=== PATIENT | female | born 1985 | race Caucasian/White ===

== ENCOUNTER → 2020-02-24 | Outpatient (CLI) | payer OTHER | LOC: RAD 09:12 | PROVIDERS: ATTEND Surgery | DX: C50.912 Malignant neoplasm of unspecified site of left female breast (principal) | CPT/HCPCS: 77049 ==

== ENCOUNTER → 2020-05-10 | Outpatient (CLI) | payer OTHER ==
--- NOTE | 2020-05-10 14:54 | RADIOLOGY REPORT (SQ) ---
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 RADIONUCLIDE AND DOSE: 26.8 mCi technetium 99m labeled red blood cells The route of agent administration: Intravenous TECHNIQUE: Following administration of the radionuclide, gated images of the heart are obtained in t hree projections. Left ventricular functional analysis performed. LIMITATIONS: None. FINDINGS: LEFT VENTRICULAR FUNCTION: EJECTION FRACTION: 53%. END-DIASTOLIC VOLUME: 99 mL. END-SYSTOLIC VOLUME: 49 mL. WALL MOTION: No focal wall motion abnormalities. OTHER: No other significant finding. IMPRESSION: NORMAL CARDIAC MUGA STUDY. NORMAL LEFT VENTRICULAR FUNCTION WITH VALUES ABOVE. TECHNICAL DOCUMENTATION: JOB ID: [id number] 2010 [employer]- All Rights Reserved Reading location - IP/workstation name: [email or web address]
== END ==
LOC: RAD 12:39
PROVIDERS: ATTEND Internal Medicine
DX: C50.012 Malignant neoplasm of nipple and areola, left female breast (principal); Z13.6 Encounter for screening for cardiovascular disorders; Z51.11 Encounter for antineoplastic chemotherapy
CPT/HCPCS: 78472; A9560; Q9969

== ENCOUNTER 2020-05-19 08:46 | Outpatient (CLI) | payer OTHER ==
[~2020-05-19 08:46] MED LIST: DEXAMETHASONE SOD PHOSPHATE 10 MG in NORMAL SALINE 50 ML IV PRN; DIPHENHYDRAMINE HCL 50 MG in NORMAL SALINE 50 ML IV PRN; FAMOTIDINE/PF 20 MG in NORMAL SALINE 50 ML IV PRN; NORMAL SALINE 250 ML IV PRN; NORMAL SALINE IV PRN; PACLITAXEL SEMI SYNTHETIC IV PRN; TRASTUZUMAB IV PRN
[2020-05-19 09:06] VITALS: BP 110/57
== END 2020-05-19 14:37 | disposition home or self-care (01) ==
LOC: II 08:46 → 5TH 08:48 → II 14:37
PROVIDERS: ATTEND Internal Medicine
DX: Z51.11 Encounter for antineoplastic chemotherapy (principal); C50.012 Malignant neoplasm of nipple and areola, left female breast
CPT/HCPCS: 96413; 96415; 96367; 96417; J1200; J7050; J9267; S0028; J1100; J9355; J1642

== ENCOUNTER 2020-05-26 08:49 | Outpatient (CLI) | payer OTHER ==
[2020-05-26 09:07] VITALS: BP 109/68
== END 2020-05-26 12:29 | disposition home or self-care (01) ==
LOC: II 08:49 → 5TH 09:16 → II 12:29
PROVIDERS: ATTEND Internal Medicine
DX: Z51.11 Encounter for antineoplastic chemotherapy (principal); C50.012 Malignant neoplasm of nipple and areola, left female breast
CPT/HCPCS: 96413; 96367; 96417; J1200; J7050; J9267; S0028; J1100; J9355; J1642; 96365

== ENCOUNTER 2020-06-02 08:45 | Outpatient (CLI) | payer OTHER ==
[~2020-06-02 08:45] MED LIST changes: +DEXAMETHASONE 10 MG in NS 50 ML IV PRN; -DEXAMETHASONE SOD PHOSPHATE 10 MG in NORMAL SALINE 50 ML IV PRN; +DIPHENHYDRAMINE 50 MG in NS 50 ML IV PRN; -DIPHENHYDRAMINE HCL 50 MG in NORMAL SALINE 50 ML IV PRN; +FAMOTIDINE 20 MG in NS 50 ML IV PRN; -FAMOTIDINE/PF 20 MG in NORMAL SALINE 50 ML IV PRN; +NORMAL SALINE 250 ML @ KVO IV PRN; -NORMAL SALINE 250 ML IV PRN
[2020-06-02 09:10] VITALS: BP 122/71
== END 2020-06-02 14:00 | disposition home or self-care (01) ==
LOC: II 08:45 → 5TH 08:47 → II 14:00
PROVIDERS: ATTEND Internal Medicine
DX: Z51.11 Encounter for antineoplastic chemotherapy (principal); C50.012 Malignant neoplasm of nipple and areola, left female breast
CPT/HCPCS: 96413; 96367; 96417; J1200; J7050; J9267; S0028; J1100; J9355; J1642

== ENCOUNTER 2020-06-09 08:58 | Outpatient (CLI) | payer OTHER ==
[2020-06-09 09:56] VITALS: BP 114/74
== END 2020-06-09 12:30 | disposition home or self-care (01) ==
LOC: II 08:58 → 5TH 08:59 → II 12:30
PROVIDERS: ATTEND Internal Medicine
DX: Z51.11 Encounter for antineoplastic chemotherapy (principal); C50.012 Malignant neoplasm of nipple and areola, left female breast
CPT/HCPCS: 96413; 96367; 96417; J1200; J7050; J9267; S0028; J1100; J9355; J1642

== ENCOUNTER 2020-06-16 09:08 | Outpatient (CLI) | payer OTHER ==
[2020-06-16 09:44] VITALS: BP 113/71
== END 2020-06-16 12:30 | disposition home or self-care (01) ==
LOC: II 09:08 → 5TH 09:10 → II 12:30
PROVIDERS: ATTEND Internal Medicine
DX: Z51.11 Encounter for antineoplastic chemotherapy (principal); C50.012 Malignant neoplasm of nipple and areola, left female breast
CPT/HCPCS: 96413; 96367; 96417; J1200; J7050; J9267; S0028; J1100; J9355; J1642

== ENCOUNTER 2020-06-23 08:53 | Outpatient (CLI) | payer OTHER ==
[2020-06-23 09:03] VITALS: BP 112/70
== END 2020-06-23 12:45 | disposition home or self-care (01) ==
LOC: II 08:53 → 5TH 08:54 → II 12:45
PROVIDERS: ATTEND Internal Medicine
DX: Z51.11 Encounter for antineoplastic chemotherapy (principal); C50.012 Malignant neoplasm of nipple and areola, left female breast
CPT/HCPCS: 96413; 96367; 96417; J1200; J7050; J9267; S0028; J1100; J9355; J1642

== ENCOUNTER 2020-06-30 08:58 | Outpatient (CLI) | payer OTHER ==
[2020-06-30 09:56] VITALS: BP 117/75
== END 2020-06-30 13:10 | disposition home or self-care (01) ==
LOC: II 08:58 → 5TH 09:01 → II 13:10
PROVIDERS: ATTEND Internal Medicine
DX: Z51.11 Encounter for antineoplastic chemotherapy (principal); C50.012 Malignant neoplasm of nipple and areola, left female breast
CPT/HCPCS: 96413; 96367; 96417; J1200; J7050; J9267; S0028; J1100; J9355; J1642

== ENCOUNTER 2020-07-07 08:54 | Outpatient (CLI) | payer OTHER ==
[2020-07-07 09:09] VITALS: BP 127/73
== END 2020-07-07 13:16 | disposition home or self-care (01) ==
LOC: II 08:54 → 5TH 08:55 → II 13:16
PROVIDERS: ATTEND Internal Medicine
DX: Z51.11 Encounter for antineoplastic chemotherapy (principal); C50.012 Malignant neoplasm of nipple and areola, left female breast
CPT/HCPCS: 96413; 96367; 96417; J1200; J7050; J9267; S0028; J1100; J9355; J1642

== ENCOUNTER → 2020-07-07 | Outpatient (CLI) | payer OTHER ==
--- NOTE | 2020-07-07 13:38 | RADIOLOGY REPORT (SQ) ---
EXAM DESCRIPTION: RIBS LEFT W/PA CHEST IMAGES COMPLETED DATE/TIME: 07/07/2020 12:59 pm REASON FOR STUDY: RIB PAIN R07.82 INTERCOSTAL PAIN COMPARISON: None. TECHNIQUE: Frontal view of the chest and additional views of the left ribs acquired. NUMBER OF VIEWS: Three view. LIMITATIONS: None. FINDINGS: FRONTAL CXR: No pneumothorax. No pleural effusion. No atelectasis or infiltrates. RIBS: No displaced rib fractures. No lytic or blastic bony lesions. OTHER: No other significant finding. IMPRESSION: NO PNEUMOTHORAX. NO DISPLACED RIB FRACTURES. COMMENT: SITE OF TRAUMA/COMPLAINT MARKED/STAMP COMPLETED: No TECHNICAL DOCUMENTATION: JOB ID: [id number] 2010 [employer]- All Rights Reserved Reading location - IP/workstation name: [email or web address]
== END ==
LOC: RAD 12:39
PROVIDERS: ATTEND Physician Assistant Medical
DX: R07.81 Pleurodynia (principal)

== ENCOUNTER 2020-07-14 08:50 | Outpatient (CLI) | payer OTHER ==
[2020-07-14 09:22] VITALS: BP 109/70
== END 2020-07-14 13:00 | disposition home or self-care (01) ==
LOC: II 08:50 → 5TH 09:02 → II 13:00
PROVIDERS: ATTEND Internal Medicine
DX: Z51.11 Encounter for antineoplastic chemotherapy (principal); C50.012 Malignant neoplasm of nipple and areola, left female breast
CPT/HCPCS: 96413; 96367; 96417; J1200; J7050; J9267; S0028; J1100; J9355; J1642

== ENCOUNTER 2020-07-21 08:59 | Outpatient (CLI) | payer OTHER ==
[2020-07-21 09:24] VITALS: BP 108/69
--- OUTSIDE RECORDS SUMMARY | 2020-07-22 15:12 | XMS REPORT ---
:1985 [facility] [address] [place] [address] Care Team Providers Name Role Phone Junito Talamantes Attending Clinician Unavailable EDNA Attending Clinician Unavailable Chai Attending Clinician Unavailable Osiris Attending Clinician Unavailable Allergies, Adverse Reactions, Alerts This patient has no known allergies or adverse reactions. Medications Ordered Filled Start Stop Current Ordering Indication Dosage Frequency Signature Comments Components Medication Medication Date Date Medication? Clinician (SIG) Name Name Clotrimazol 2020-1 Yes e 0- 00:00: 00 Medrol 2020-1 Yes 0 00:00: 00 Ativan 2020-0 Yes 1 06-08 00:00: 00 Clindamycin 2020-0 Yes 1 Phos-Benzoy 9-30 l Perox 00:00: 00 Heparin 2020-0 2020- Yes 5mL Sodium Lock 06-02 Flush 00:00: 00:00 00 :00 Trastuzumab 2020-0 No 143mg 9-10 00:00: 00 Cimetidine 2020-0 Yes HCl 9- 00:00: 00 Dexamethaso 2020-0 Yes 10mg ne Sodium 9-10 Phosphate 00:00: 00 DiphenhydrA 2020-0 Yes 50mg MINE HCl 9- 00:00: 00 Paclitaxel 2020-0 Yes 141mg 9-10 00:00: 00 Sodium 2020-0 No Chloride 9-10 00:00: 00 Sodium 2020-0 Yes 250mL Chloride 9-10 00:00: 00 Famotidine 2020-0 2020- Yes 20mg 9-10 07-01 00:00: 00:00 00 :00 Trastuzumab 2020-0 2020- Yes 142mg -07-01 00:00: 00:00 00 :00 Promethazin 2020-0 Yes 1 e HCl 05-18 00:00: 00 Zofran ODT 2020-0 Yes 1 05-18 00:00: 00 Oxycodone/A 2019- Yes 1 Every 4 cetaminophe 7-17 Hours as n (Percocet 13:27: needed for 5/325 Mg*) 00 Mild Pain 5 Mg/325 Mg No driving TAB or heavy lifting. May cause drowsiness . Docusate 2020-0 Yes 100 Twice Per Sodium 7-17 Day (Colace*) 13:26: 100 Mg CAP 00 Bactrim DS No 1 Q12H Bactrim DS 800 mg-160 800 mg-160 mg tablet mg tablet Take 1 Take 1 tablet tablet every 12 every 12 hours by hours by oral route oral route for 7 days. for 7 days. Flonase Yes 1 ZyrTEC Yes 1 Allergy Cetirizine Yes 10 Once Per Hcl (Zyrtec Day as Tab*) 10 Mg needed for TAB Allergies Fluticasone Yes 2 Once Per Propionate Day as (Flonase needed for 0.05% Nasal Allergies [place]*) 120 SHAKE WELL [place]/16 Gm INHA Problems Condition Condition Condition Status Onset Resolution Last Treatin g Comments Name Details Category Date Date Treatment Clinician Date Rib pain Rib pain Diagnosis active 2019-09 0- 00:00: 00 Eruption Eruption Diagnosis active 2019-09 0- 00:00: 00 Nausea Nausea Diagnosis active 9 00:00: 00 Postoperati Postoperati Problem Active ve wound ve Wound 8-03 abscess Abscess 00:00: 00 History of History of Problem Active malignant Malignant 04-05 neoplasm of Neoplasm of 00:00: breast Breast 00 Malignant Malignant Problem Inactiv neoplasm of Neoplasm of e 7 female Female 00:00: breast Breast 00 Anal Anal Problem Active fissure Fissure 6-02 00:00: 00 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 00:00: 00 Primary Primary Problem 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 Malignant Malignant Diagnosis active tumor of tumor of breast breast Procedures Procedure Date / Time Performed Performing Clinician Deanna trujillo mastectomy, with sentinel lymph 2020-04-04 00:00:00 node biopsy (SURG) Mastectomy, with [place] Lymph 2020-03-25 00:00:00 Node Biopsy (Surg) MRI, breast, bilateral, w/wo 2020-02-16 00:00:00 contrast MAMMO, diagnostic, digital, 2020-02-09 00:00:00 unilateral OFFICE/OUTPATIENT VISIT EST 2019-01-09 10:15:00 OFFICE/OUTPATIENT VISIT EST 2018-10-15 10:00:00 DELIVERY ONLY 2013-01-06 00:00:00 section 2013-01-06 00:00:00 DELIVERY ONLY 2012-09-09 00:00:00 Excision of Pilonidal Abscess 2005-09-09 00:00:00 Pilonidal Cyst breast biopsy Results Test Description Test Time Test Comments Text Results Atomic Results Result Comments WBC 2020-07-13 15:21:00 Test Item Value Reference Range Comments WBC (test code = WBC) 4.9000 4.0000-10.0000 Lymphocytes % (test code = Lymphocytes %) 27.7000 % 22.400 0-43.6000 MID% (test code = MID%) 6.2000 % 1.2000-11.2000 Neutrophils % (test code = Neutrophils %) 66.1000 % 48.900 0-69.9000 Lymphocytes (test code = Lymphocytes) 1.3000 1.2000-3.2 000 MID (test code = MID) 0.4000 0.1000-1.1000 Neutrophils (test code = Neutrophils) 3.2000 1.5000-6.7 000 RBC (test code = RBC) 3.6500 3.7000-4.9000 HGB (test code = HGB) 11.5000 g/dL 11.2000-18.0000 HCT (test code = HCT) 32.7000 % 34.0000-44.0000 MCV (test code = MCV) 89.6000 fL 80.0000-94.0000 MCH (test code = MCH) 31.5000 pg 27.0000-34.0000 MCHC (test code = MCHC) 35.2000 g/dL 31.5000-36.0000 RDW (test code = RDW) 15.9000 11.0000-18.0000 PLT (test code = PLT) 370.0000 140.0000-440.0000 MPV (test code = MPV) 7.6000 fL 6.8000-10.6000 [id number] 15:21:00 Test Item Value Reference Range Comments Creatinine (test code = Creatinine) 0.6000 mg/dL 0.5000-1.200 0 Cr Clearance (Est) (test code = Cr 143.7700 75.0000-115.0 000 Clearance (Est)) Glucose (test code = Glucose) 108.0000 mg/dL 70.0000-118.0000 BUN (test code = BUN) 14.0000 mg/dL 7.0000-22.0000 Sodium (test code = Sodium) 137.0000 mmol/L 128.0000-145.0000 Potassium (test code = Potassium) 3.7000 mmol/L 3.6000-5.1000 Chloride (test code = Chloride) 103.0000 mmol/L 96.0000-108.0000 CO2 (test code = CO2) 28.0000 mmol/L 18.0000-33.0000 Calcium (test code = Calcium) 9.0900 mg/dL 8.0000-10.3000 Alkaline Phosphatase (test code = Alkaline 94.0000 42.00 00-141.0000 Phosphatase) ALT (SGPT) (test code = ALT (SGPT)) 33.0000 10.0000-47.0 000 AST (SGOT) (test code = AST (SGOT)) 21.0000 11.0000-37.0 000 Bilirubin, Total (test code = Bilirubin, 0.8000 mg/dL 0.0000- 1.6000 Total) Albumin (test code = Albumin) 4.6000 g/dL 3.5000-5.5000 Protein, Total (test code = Protein, 6.2000 g/dL 6.4000-8.10 00 Total) eGFR -Angolan (test code = eGFR 137.0000 60.0000- 200.0000 -Angolan) eGFR Caa-Rzhzwtv-Lbehiujq (test code = 113.0000 60.0000-2 00.0000 eGFR Wxg-Kutawmo-Pbhknkuc) [id number] 14:54:00 Test Item Value Reference Range Comments WBC (test code = WBC) 5.8000 4.0000-10.0000 Lymphocytes % (test code = Lymphocytes %) 24.3000 % 22.400 0-43.6000 MID% (test code = MID%) 5.7000 % 1.2000-11.2000 Neutrophils % (test code = Neutrophils %) 70.0000 % 48.900 0-69.9000 Lymphocytes (test code = Lymphocytes) 1.4000 1.2000-3.2 000 MID (test code = MID) 0.4000 0.1000-1.1000 Neutrophils (test code = Neutrophils) 4.0000 1.5000-6.7 000 RBC (test code = RBC) 3.6600 3.7000-4.9000 HGB (test code = HGB) 11.6000 g/dL 11.2000-18.0000 HCT (test code = HCT) 32.2000 % 34.0000-44.0000 MCV (test code = MCV) 87.9000 fL 80.0000-94.0000 MCH (test code = MCH) 31.8000 pg 27.0000-34.0000 MCHC (test code = MCHC) 36.2000 g/dL 31.5000-36.0000 RDW (test code = RDW) 15.5000 11.0000-18.0000 PLT (test code = PLT) 365.0000 140.0000-440.0000 MPV (test code = MPV) 7.5000 fL 6.8000-10.6000 [id number] 14:54:00 Test Item Value Reference Range Comments RBC (test code = RBC) 3.6600 3.7000-4.9000 WBC (test code = WBC) 5.8000 4.0000-10.0000 PLT (test code = PLT) 365.0000 140.0000-440.0000 MID (test code = MID) 0.4000 0.1000-1.1000 Neutrophils (test code = Neutrophils) 4.0000 1.5000-6.7 000 MCHC (test code = MCHC) 36.2000 g/dL 31.5000-36.0000 HGB (test code = HGB) 11.6000 g/dL 11.2000-18.0000 Lymphocytes (test code = Lymphocytes) 1.4000 1.2000-3.2 000 MPV (test code = MPV) 7.5000 fL 6.8000-10.6000 MCV (test code = MCV) 87.9000 fL 80.0000-94.0000 MCH (test code = MCH) 31.8000 pg 27.0000-34.0000 Neutrophils % (test code = Neutrophils %) 70.0000 % 48.900 0-69.9000 HCT (test code = HCT) 32.2000 % 34.0000-44.0000 Lymphocytes % (test code = Lymphocytes %) 24.3000 % 22.400 0-43.6000 MID% (test code = MID%) 5.7000 % 1.2000-11.2000 RDW (test code = RDW) 15.5000 11.0000-18.0000 Protein, [id number] 14:54:00 Test Item Value Reference Range Comments Protein, Total (test code = Protein, 6.7000 g/dL 6.4000-8.10 00 Total) Albumin (test code = Albumin) 4.7000 g/dL 3.5000-5.5000 Glucose (test code = Glucose) 93.0000 mg/dL 70.0000-118.0000 Calcium (test code = Calcium) 9.8500 mg/dL 8.0000-10.3000 Bilirubin, Total (test code = Bilirubin, 0.8000 mg/dL 0.0000- 1.6000 Total) BUN (test code = BUN) 13.0000 mg/dL 7.0000-22.0000 Creatinine (test code = Creatinine) 0.5000 mg/dL 0.5000-1.200 0 eGFR Iuq-Lfivist-Wvdgpqyq (test code = 139.0000 60.0000-2 00.0000 eGFR Odg-Zreppsv-Bjdoeocq) Cr Clearance (Est) (test code = Cr 171.4300 75.0000-115.0 000 Clearance (Est)) Potassium (test code = Potassium) 3.8000 mmol/L 3.6000-5.1000 eGFR -Angolan (test code = eGFR 168.0000 60.0000- 200.0000 -Angolan) Sodium (test code = Sodium) 136.0000 mmol/L 128.0000-145.0000 Alkaline Phosphatase (test code = Alkaline 96.0000 42.00 00-141.0000 Phosphatase) ALT (SGPT) (test code = ALT (SGPT)) 49.0000 10.0000-47.0 000 AST (SGOT) (test code = AST (SGOT)) 29.0000 11.0000-37.0 000 CO2 (test code = CO2) 27.0000 mmol/L 18.0000-33.0000 Chloride (test code = Chloride) 103.0000 mmol/L 96.0000-108.0000 [id number] 14:54:00 Test Item Value Reference Range Comments Creatinine (test code = Creatinine) 0.5000 mg/dL 0.5000-1.200 0 Cr Clearance (Est) (test code = Cr 171.4300 75.0000-115.0 000 Clearance (Est)) Glucose (test code = Glucose) 93.0000 mg/dL 70.0000-118.0000 BUN (test code = BUN) 13.0000 mg/dL 7.0000-22.0000 Sodium (test code = Sodium) 136.0000 mmol/L 128.0000-145.0000 Potassium (test code = Potassium) 3.8000 mmol/L 3.6000-5.1000 Chloride (test code = Chloride) 103.0000 mmol/L 96.0000-108.0000 CO2 (test code = CO2) 27.0000 mmol/L 18.0000-33.0000 Calcium (test code = Calcium) 9.8500 mg/dL 8.0000-10.3000 Alkaline Phosphatase (test code = Alkaline 96.0000 42.00 00-141.0000 Phosphatase) ALT (SGPT) (test code = ALT (SGPT)) 49.0000 10.0000-47.0 000 AST (SGOT) (test code = AST (SGOT)) 29.0000 11.0000-37.0 000 Bilirubin, Total (test code = Bilirubin, 0.8000 mg/dL 0.0000- 1.6000 Total) Albumin (test code = Albumin) 4.7000 g/dL 3.5000-5.5000 Protein, Total (test code = Protein, 6.7000 g/dL 6.4000-8.10 00 Total) eGFR -Angolan (test code = eGFR 168.0000 60.0000- 200.0000 -Angolan) eGFR Par-Zjyyqhz-Rjmndzav (test code = 139.0000 60.0000-2 00.0000 eGFR Lzi-Iuifzrm-Oroxrslz) [id number] 08:28:00 Test Item Value Reference Range Comments WBC (test code = WBC) 5.0000 4.0000-10.0000 Lymphocytes % (test code = Lymphocytes %) 23.2000 % 22.400 0-43.6000 MID% (test code = MID%) 5.7000 % 1.2000-11.2000 Neutrophils % (test code = Neutrophils %) 71.1000 % 48.900 0-69.9000 Lymphocytes (test code = Lymphocytes) 1.1000 1.2000-3.2 000 MID (test code = MID) 0.4000 0.1000-1.1000 Neutrophils (test code = Neutrophils) 3.5000 1.5000-6.7 000 RBC (test code = RBC) 3.7800 3.7000-4.9000 HGB (test code = HGB) 12.0000 g/dL 11.2000-18.0000 HCT (test code = HCT) 33.8000 % 34.0000-44.0000 MCV (test code = MCV) 89.4000 fL 80.0000-94.0000 MCH (test code = MCH) 31.9000 pg 27.0000-34.0000 MCHC (test code = MCHC) 35.7000 g/dL 31.5000-36.0000 RDW (test code = RDW) 15.8000 11.0000-18.0000 PLT (test code = PLT) 351.0000 140.0000-440.0000 MPV (test code = MPV) 7.3000 fL 6.8000-10.6000 [id number] 08:28:00 Test Item Value Reference Range Comments Creatinine (test code = Creatinine) 0.5000 mg/dL 0.5000-1.200 0 Cr Clearance (Est) (test code = Cr 173.4100 75.0000-115.0 000 Clearance (Est)) Glucose (test code = Glucose) 103.0000 mg/dL 70.0000-118.0000 BUN (test code = BUN) 12.0000 mg/dL 7.0000-22.0000 Sodium (test code = Sodium) 140.0000 mmol/L 128.0000-145.0000 Potassium (test code = Potassium) 3.8000 mmol/L 3.6000-5.1000 Chloride (test code = Chloride) 107.0000 mmol/L 96.0000-108.0000 CO2 (test code = CO2) 25.0000 mmol/L 18.0000-33.0000 Calcium (test code = Calcium) 9.3800 mg/dL 8.0000-10.3000 Alkaline Phosphatase (test code = Alkaline 80.0000 42.00 00-141.0000 Phosphatase) ALT (SGPT) (test code = ALT (SGPT)) 32.0000 10.0000-47.0 000 AST (SGOT) (test code = AST (SGOT)) 18.0000 11.0000-37.0 000 Bilirubin, Total (test code = Bilirubin, 0.6000 mg/dL 0.0000- 1.6000 Total) Albumin (test code = Albumin) 4.6000 g/dL 3.5000-5.5000 Protein, Total (test code = Protein, 6.4000 g/dL 6.4000-8.10 00 Total) eGFR -Angolan (test code = eGFR 168.0000 60.0000- 200.0000 -Angolan) eGFR Kst-Oxhfopw-Paorgooq (test code = 139.0000 60.0000-2 00.0000 eGFR Lkx-Mdoqgdy-Ubbxnykn) AST (SGOT)2020-06-30 08:28:00 Test Item Value Reference Range Comments AST (SGOT) (test code = AST (SGOT)) 18.0000 11.0000-37.0 000 CO2 (test code = CO2) 25.0000 mmol/L 18.0000-33.0000 ALT (SGPT) (test code = ALT (SGPT)) 32.0000 10.0000-47.0 000 Alkaline Phosphatase (test code = Alkaline 80.0000 42.00 00-141.0000 Phosphatase) Sodium (test code = Sodium) 140.0000 mmol/L 128.0000-145.0000 Potassium (test code = Potassium) 3.8000 mmol/L 3.6000-5.1000 Chloride (test code = Chloride) 107.0000 mmol/L 96.0000-108.0000 eGFR -Angolan (test code = eGFR 168.0000 60.0000- 200.0000 -Angolan) eGFR Baa-Spxflhy-Urqudikq (test code = 139.0000 60.0000-2 00.0000 eGFR Rmk-Dgmzwmy-Bnnyzhry) Cr Clearance (Est) (test code = Cr 173.4100 75.0000-115.0 000 Clearance (Est)) Creatinine (test code = Creatinine) 0.5000 mg/dL 0.5000-1.200 0 Bilirubin, Total (test code = Bilirubin, 0.6000 mg/dL 0.0000- 1.6000 Total) BUN (test code = BUN) 12.0000 mg/dL 7.0000-22.0000 Calcium (test code = Calcium) 9.3800 mg/dL 8.0000-10.3000 Protein, Total (test code = Protein, 6.4000 g/dL 6.4000-8.10 00 Total) Glucose (test code = Glucose) 103.0000 mg/dL 70.0000-118.0000 Albumin (test code = Albumin) 4.6000 g/dL 3.5000-5.5000 [id number] 08:28:00 Test Item Value Reference Range Comments RDW (test code = RDW) 15.8000 11.0000-18.0000 MID% (test code = MID%) 5.7000 % 1.2000-11.2000 Lymphocytes % (test code = Lymphocytes %) 23.2000 % 22.400 0-43.6000 Neutrophils % (test code = Neutrophils %) 71.1000 % 48.900 0-69.9000 HCT (test code = HCT) 33.8000 % 34.0000-44.0000 MCH (test code = MCH) 31.9000 pg 27.0000-34.0000 MCV (test code = MCV) 89.4000 fL 80.0000-94.0000 MPV (test code = MPV) 7.3000 fL 6.8000-10.6000 HGB (test code = HGB) 12.0000 g/dL 11.2000-18.0000 MCHC (test code = MCHC) 35.7000 g/dL 31.5000-36.0000 Lymphocytes (test code = Lymphocytes) 1.1000 1.2000-3.2 000 MID (test code = MID) 0.4000 0.1000-1.1000 Neutrophils (test code = Neutrophils) 3.5000 1.5000-6.7 000 PLT (test code = PLT) 351.0000 140.0000-440.0000 WBC (test code = WBC) 5.0000 4.0000-10.0000 RBC (test code = RBC) 3.7800 3.7000-4.9000 [id number] 14:46:00 Test Item Value Reference Range Comments WBC (test code = WBC) 5.9000 4.0000-10.0000 Lymphocytes % (test code = Lymphocytes %) 25.7000 % 22.400 0-43.6000 MID% (test code = MID%) 5.7000 % 1.2000-11.2000 Neutrophils % (test code = Neutrophils %) 68.6000 % 48.900 0-69.9000 Lymphocytes (test code = Lymphocytes) 1.5000 1.2000-3.2 000 MID (test code = MID) 0.4000 0.1000-1.1000 Neutrophils (test code = Neutrophils) 4.0000 1.5000-6.7 000 RBC (test code = RBC) 3.9400 3.7000-4.9000 HGB (test code = HGB) 12.3000 g/dL 11.2000-18.0000 HCT (test code = HCT) 35.2000 % 34.0000-44.0000 MCV (test code = MCV) 89.2000 fL 80.0000-94.0000 MCH (test code = MCH) 31.2000 pg 27.0000-34.0000 MCHC (test code = MCHC) 35.0000 g/dL 31.5000-36.0000 RDW (test code = RDW) 15.5000 11.0000-18.0000 PLT (test code = PLT) 385.0000 140.0000-440.0000 MPV (test code = MPV) 7.4000 fL 6.8000-10.6000 [id number] 14:46:00 Test Item Value Reference Range Comments Creatinine (test code = Creatinine) 0.7000 mg/dL 0.5000-1.200 0 Cr Clearance (Est) (test code = Cr 122.4500 75.0000-115.0 000 Clearance (Est)) Glucose (test code = Glucose) 96.0000 mg/dL 70.0000-118.0000 BUN (test code = BUN) 14.0000 mg/dL 7.0000-22.0000 Sodium (test code = Sodium) 137.0000 mmol/L 128.0000-145.0000 Potassium (test code = Potassium) 3.7000 mmol/L 3.6000-5.1000 Chloride (test code = Chloride) 102.0000 mmol/L 96.0000-108.0000 CO2 (test code = CO2) 28.0000 mmol/L 18.0000-33.0000 Calcium (test code = Calcium) 9.6600 mg/dL 8.0000-10.3000 Alkaline Phosphatase (test code = Alkaline 94.0000 42.00 00-141.0000 Phosphatase) ALT (SGPT) (test code = ALT (SGPT)) 27.0000 10.0000-47.0 000 AST (SGOT) (test code = AST (SGOT)) 19.0000 11.0000-37.0 000 Bilirubin, Total (test code = Bilirubin, 0.7000 mg/dL 0.0000- 1.6000 Total) Albumin (test code = Albumin) 4.7000 g/dL 3.5000-5.5000 Protein, Total (test code = Protein, 6.7000 g/dL 6.4000-8.10 00 Total) eGFR -Angolan (test code = eGFR 115.0000 60.0000- 200.0000 -Angolan) eGFR Vqs-Cbhvxse-Thlplaix (test code = 95.0000 60.0000-2 00.0000 eGFR Iff-Hnnxjrg-Wwryeuef) [id number] 14:46:00 Test Item Value Reference Range Comments RBC (test code = RBC) 3.9400 3.7000-4.9000 PLT (test code = PLT) 385.0000 140.0000-440.0000 WBC (test code = WBC) 5.9000 4.0000-10.0000 Neutrophils (test code = Neutrophils) 4.0000 1.5000-6.7 000 MID (test code = MID) 0.4000 0.1000-1.1000 Lymphocytes (test code = Lymphocytes) 1.5000 1.2000-3.2 000 MCHC (test code = MCHC) 35.0000 g/dL 31.5000-36.0000 HGB (test code = HGB) 12.3000 g/dL 11.2000-18.0000 MPV (test code = MPV) 7.4000 fL 6.8000-10.6000 MCV (test code = MCV) 89.2000 fL 80.0000-94.0000 MCH (test code = MCH) 31.2000 pg 27.0000-34.0000 HCT (test code = HCT) 35.2000 % 34.0000-44.0000 Neutrophils % (test code = Neutrophils %) 68.6000 % 48.900 0-69.9000 Lymphocytes % (test code = Lymphocytes %) 25.7000 % 22.400 0-43.6000 MID% (test code = MID%) 5.7000 % 1.2000-11.2000 RDW (test code = RDW) 15.5000 11.0000-18.0000 [id number] 14:46:00 Test Item Value Reference Range Comments Albumin (test code = Albumin) 4.7000 g/dL 3.5000-5.5000 Protein, Total (test code = Protein, 6.7000 g/dL 6.4000-8.10 00 Total) Calcium (test code = Calcium) 9.6600 mg/dL 8.0000-10.3000 BUN (test code = BUN) 14.0000 mg/dL 7.0000-22.0000 Glucose (test code = Glucose) 96.0000 mg/dL 70.0000-118.0000 Bilirubin, Total (test code = Bilirubin, 0.7000 mg/dL 0.0000- 1.6000 Total) Creatinine (test code = Creatinine) 0.7000 mg/dL 0.5000-1.200 0 Cr Clearance (Est) (test code = Cr 122.4500 75.0000-115.0 000 Clearance (Est)) eGFR -Angolan (test code = eGFR 115.0000 60.0000- 200.0000 -Angolan) eGFR Irl-Jqcretp-Eybckjjf (test code = 95.0000 60.0000-2 00.0000 eGFR Sjl-Dilcukd-Zzkcyqyb) Chloride (test code = Chloride) 102.0000 mmol/L 96.0000-108.0000 Potassium (test code = Potassium) 3.7000 mmol/L 3.6000-5.1000 Sodium (test code = Sodium) 137.0000 mmol/L 128.0000-145.0000 Alkaline Phosphatase (test code = Alkaline 94.0000 42.00 00-141.0000 Phosphatase) ALT (SGPT) (test code = ALT (SGPT)) 27.0000 10.0000-47.0 000 CO2 (test code = CO2) 28.0000 mmol/L 18.0000-33.0000 AST (SGOT) (test code = AST (SGOT)) 19.0000 11.0000-37.0 000 [id number] 08:33:00 Test Item Value Reference Range Comments WBC (test code = WBC) 4.4000 4.0000-10.0000 Lymphocytes % (test code = Lymphocytes %) 28.1000 % 22.400 0-43.6000 MID% (test code = MID%) 6.0000 % 1.2000-11.2000 Neutrophils % (test code = Neutrophils %) 65.9000 % 48.900 0-69.9000 Lymphocytes (test code = Lymphocytes) 1.2000 1.2000-3.2 000 MID (test code = MID) 0.3000 0.1000-1.1000 Neutrophils (test code = Neutrophils) 2.9000 1.5000-6.7 000 RBC (test code = RBC) 3.9700 3.7000-4.9000 HGB (test code = HGB) 12.7000 g/dL 11.2000-18.0000 HCT (test code = HCT) 35.5000 % 34.0000-44.0000 MCV (test code = MCV) 89.4000 fL 80.0000-94.0000 MCH (test code = MCH) 32.0000 pg 27.0000-34.0000 MCHC (test code = MCHC) 35.8000 g/dL 31.5000-36.0000 RDW (test code = RDW) 15.6000 11.0000-18.0000 PLT (test code = PLT) 367.0000 140.0000-440.0000 MPV (test code = MPV) 7.4000 fL 6.8000-10.6000 [id number] 08:33:00 Test Item Value Reference Range Comments RDW (test code = RDW) 15.6000 11.0000-18.0000 Lymphocytes % (test code = Lymphocytes %) 28.1000 % 22.400 0-43.6000 MID% (test code = MID%) 6.0000 % 1.2000-11.1999 Neutrophils % (test code = Neutrophils %) 65.9000 % 48.900 0-69.9000 HCT (test code = HCT) 35.5000 % 34.0000-44.0000 MCH (test code = MCH) 32.0000 pg 27.0000-34.0000 MCV (test code = MCV) 89.4000 fL 80.0000-94.0000 MPV (test code = MPV) 7.4000 fL 6.8000-10.6000 HGB (test code = HGB) 12.7000 g/dL 11.1999-18.0000 MCHC (test code = MCHC) 35.8000 g/dL 31.5000-36.0000 Lymphocytes (test code = Lymphocytes) 1.2000 1.2000-3.2 000 MID (test code = MID) 0.3000 0.1000-1.1000 Neutrophils (test code = Neutrophils) 2.9000 1.5000-6.7 000 WBC (test code = WBC) 4.4000 4.0000-10.0000 PLT (test code = PLT) 367.0000 140.0000-440.0000 RBC (test code = RBC) 3.9700 3.7000-4.9000 [id number] 08:32:00 Test Item Value Reference Range Comments Creatinine (test code = Creatinine) 0.5000 mg/dL 0.5000-1.200 0 Cr Clearance (Est) (test code = Cr 173.4100 75.0000-115.0 000 Clearance (Est)) Glucose (test code = Glucose) 128.0000 mg/dL 70.0000-118.0000 BUN (test code = BUN) 11.0000 mg/dL 7.0000-22.0000 Sodium (test code = Sodium) 138.0000 mmol/L 128.0000-145.0000 Potassium (test code = Potassium) 3.6000 mmol/L 3.6000-5.1000 Chloride (test code = Chloride) 106.0000 mmol/L 96.0000-108.0000 CO2 (test code = CO2) 26.0000 mmol/L 18.0000-33.0000 Calcium (test code = Calcium) 9.1800 mg/dL 8.0000-10.3000 Alkaline Phosphatase (test code = Alkaline 99.0000 42.00 00-141.0000 Phosphatase) ALT (SGPT) (test code = ALT (SGPT)) 36.0000 10.0000-47.0 000 AST (SGOT) (test code = AST (SGOT)) 20.0000 11.0000-37.0 000 Bilirubin, Total (test code = Bilirubin, 0.6000 mg/dL 0.0000- 1.6000 Total) Albumin (test code = Albumin) 4.6000 g/dL 3.5000-5.5000 Protein, Total (test code = Protein, 6.6000 g/dL 6.4000-8.10 00 Total) eGFR -Angolan (test code = eGFR 169.0000 60.0000- 200.0000 -Angolan) eGFR Wvs-Vqxbuvb-Oexpzkuz (test code = 140.0000 60.0000-2 00.0000 eGFR Pdp-Tenmnde-Gbfatqyc) [id number] 14:23:00 Test Item Value Reference Range Comments WBC (test code = WBC) 5.2000 4.0000-10.0000 Lymphocytes % (test code = Lymphocytes %) 25.9000 % 22.400 0-43.6000 MID% (test code = MID%) 5.8000 % 1.2000-11.2000 Neutrophils % (test code = Neutrophils %) 68.3000 % 48.900 0-69.9000 Lymphocytes (test code = Lymphocytes) 1.3000 1.2000-3.2 000 MID (test code = MID) 0.4000 0.1000-1.1000 Neutrophils (test code = Neutrophils) 3.5000 1.5000-6.7 000 RBC (test code = RBC) 3.9000 3.7000-4.9000 HGB (test code = HGB) 12.7000 g/dL 11.2000-18.0000 HCT (test code = HCT) 34.5000 % 34.0000-44.0000 MCV (test code = MCV) 88.6000 fL 80.0000-94.0000 MCH (test code = MCH) 32.5000 pg 27.0000-34.0000 MCHC (test code = MCHC) 36.7000 g/dL 31.5000-36.0000 RDW (test code = RDW) 15.0000 11.0000-18.0000 PLT (test code = PLT) 369.0000 140.0000-440.0000 MPV (test code = MPV) 7.6000 fL 6.8000-10.6000 [id number] 14:23:00 Test Item Value Reference Range Comments Creatinine (test code = Creatinine) 0.6000 mg/dL 0.5000-1.200 0 Cr Clearance (Est) (test code = Cr 144.3300 75.0000-115.0 000 Clearance (Est)) Glucose (test code = Glucose) 149.0000 mg/dL 70.0000-118.0000 BUN (test code = BUN) 14.0000 mg/dL 7.0000-22.0000 Sodium (test code = Sodium) 137.0000 mmol/L 128.0000-145.0000 Potassium (test code = Potassium) 3.7000 mmol/L 3.6000-5.1000 Chloride (test code = Chloride) 104.0000 mmol/L 96.0000-108.0000 CO2 (test code = CO2) 26.0000 mmol/L 18.0000-33.0000 Calcium (test code = Calcium) 9.1400 mg/dL 8.0000-10.3000 Alkaline Phosphatase (test code = Alkaline 100.0000 42.00 00-141.0000 Phosphatase) ALT (SGPT) (test code = ALT (SGPT)) 39.0000 10.0000-47.0 000 AST (SGOT) (test code = AST (SGOT)) 20.0000 11.0000-37.0 000 Bilirubin, Total (test code = Bilirubin, 0.7000 mg/dL 0.0000- 1.6000 Total) Albumin (test code = Albumin) 4.6000 g/dL 3.5000-5.5000 Protein, Total (test code = Protein, 7.0000 g/dL 6.4000-8.10 00 Total) eGFR -Angolan (test code = eGFR 136.0000 60.0000- 200.0000 -Angolan) eGFR Mqd-Hxbxqaa-Gqoyabkz (test code = 112.0000 60.0000-2 00.0000 eGFR Gbm-Tzhibvz-Fuaebvky) [id number] 14:23:00 Test Item Value Reference Range Comments HCT (test code = HCT) 34.5000 % 34.0000-44.0000 Neutrophils % (test code = Neutrophils %) 68.3000 % 48.900 0-69.9000 MID% (test code = MID%) 5.8000 % 1.2000-11.2000 Lymphocytes % (test code = Lymphocytes %) 25.9000 % 22.400 0-43.6000 RDW (test code = RDW) 15.0000 11.0000-18.0000 MPV (test code = MPV) 7.6000 fL 6.8000-10.6000 MCH (test code = MCH) 32.5000 pg 27.0000-34.0000 MCV (test code = MCV) 88.6000 fL 80.0000-94.0000 HGB (test code = HGB) 12.7000 g/dL 11.2000-18.0000 MCHC (test code = MCHC) 36.7000 g/dL 31.5000-36.0000 RBC (test code = RBC) 3.9000 3.7000-4.9000 PLT (test code = PLT) 369.0000 140.0000-440.0000 WBC (test code = WBC) 5.2000 4.0000-10.0000 Neutrophils (test code = Neutrophils) 3.5000 1.5000-6.7 000 Lymphocytes (test code = Lymphocytes) 1.3000 1.2000-3.2 000 MID (test code = MID) 0.4000 0.1000-1.1000 Alkaline [id number] 14:23:00 Test Item Value Reference Range Comments Alkaline Phosphatase (test code = Alkaline 100.0000 42.00 00-141.0000 Phosphatase) ALT (SGPT) (test code = ALT (SGPT)) 39.0000 10.0000-47.0 000 CO2 (test code = CO2) 26.0000 mmol/L 18.0000-33.0000 AST (SGOT) (test code = AST (SGOT)) 20.0000 11.0000-37.0 000 Cr Clearance (Est) (test code = Cr 144.3300 75.0000-115.0 000 Clearance (Est)) eGFR -Angolan (test code = eGFR 136.0000 60.0000- 200.0000 -Angolan) eGFR Nud-Kujoeyr-Eoagmzqe (test code = 112.0000 60.0000-2 00.0000 eGFR Bth-Gpuwfhu-Soyzvdbe) Chloride (test code = Chloride) 104.0000 mmol/L 96.0000-108.0000 Potassium (test code = Potassium) 3.7000 mmol/L 3.6000-5.1000 Sodium (test code = Sodium) 137.0000 mmol/L 128.0000-145.0000 Protein, Total (test code = Protein, 7.0000 g/dL 6.4000-8.10 00 Total) Albumin (test code = Albumin) 4.6000 g/dL 3.5000-5.5000 Calcium (test code = Calcium) 9.1400 mg/dL 8.0000-10.3000 Glucose (test code = Glucose) 149.0000 mg/dL 70.0000-118.0000 Bilirubin, Total (test code = Bilirubin, 0.7000 mg/dL 0.0000- 1.6000 Total) Creatinine (test code = Creatinine) 0.6000 mg/dL 0.5000-1.200 0 BUN (test code = BUN) 14.0000 mg/dL 7.0000-22.0000 [id number] 08:22:00 Test Item Value Reference Range Comments WBC (test code = WBC) 4.7000 4.0000-10.0000 Lymphocytes % (test code = Lymphocytes %) 27.6000 % 22.400 0-43.6000 MID% (test code = MID%) 5.7000 % 1.2000-11.2000 Neutrophils % (test code = Neutrophils %) 66.7000 % 48.900 0-69.9000 Lymphocytes (test code = Lymphocytes) 1.3000 1.2000-3.2 000 MID (test code = MID) 0.3000 0.1000-1.1000 Neutrophils (test code = Neutrophils) 3.1000 1.5000-6.7 000 RBC (test code = RBC) 4.2800 3.7000-4.9000 HGB (test code = HGB) 13.0000 g/dL 11.2000-18.0000 HCT (test code = HCT) 38.7000 % 34.0000-44.0000 MCV (test code = MCV) 90.2000 fL 80.0000-94.0000 MCH (test code = MCH) 30.4000 pg 27.0000-34.0000 MCHC (test code = MCHC) 33.7000 g/dL 31.5000-36.0000 RDW (test code = RDW) 15.2000 11.0000-18.0000 PLT (test code = PLT) 368.0000 140.0000-440.0000 MPV (test code = MPV) 7.7000 fL 6.8000-10.6000 [id number] 08:22:00 Test Item Value Reference Range Comments Creatinine (test code = Creatinine) 0.7000 mg/dL 0.5000-1.200 0 Cr Clearance (Est) (test code = Cr 123.3900 75.0000-115.0 000 Clearance (Est)) Glucose (test code = Glucose) 111.0000 mg/dL 70.0000-118.0000 BUN (test code = BUN) 13.0000 mg/dL 7.0000-22.0000 Sodium (test code = Sodium) 137.0000 mmol/L 128.0000-145.0000 Potassium (test code = Potassium) 3.7000 mmol/L 3.6000-5.1000 Chloride (test code = Chloride) 103.0000 mmol/L 96.0000-108.0000 CO2 (test code = CO2) 26.0000 mmol/L 18.0000-33.0000 Calcium (test code = Calcium) 9.1000 mg/dL 8.0000-10.3000 Alkaline Phosphatase (test code = Alkaline 94.0000 42.00 00-141.0000 Phosphatase) ALT (SGPT) (test code = ALT (SGPT)) 38.0000 10.0000-47.0 000 AST (SGOT) (test code = AST (SGOT)) 19.0000 11.0000-37.0 000 Bilirubin, Total (test code = Bilirubin, 0.6000 mg/dL 0.0000- 1.6000 Total) Albumin (test code = Albumin) 4.6000 g/dL 3.5000-5.5000 Protein, Total (test code = Protein, 6.8000 g/dL 6.4000-8.10 00 Total) eGFR -Angolan (test code = eGFR 114.0000 60.0000- 200.0000 -Angolan) eGFR Ixp-Zrdueax-Yxyjctrr (test code = 94.0000 60.0000-2 00.0000 eGFR Wgt-Xwivnmx-Zulfedlk) [id number] 08:22:00 Test Item Value Reference Range Comments BUN (test code = BUN) 13.0000 mg/dL 7.0000-22.0000 Creatinine (test code = Creatinine) 0.7000 mg/dL 0.5000-1.200 0 Bilirubin, Total (test code = Bilirubin, 0.6000 mg/dL 0.0000- 1.6000 Total) Glucose (test code = Glucose) 111.0000 mg/dL 70.0000-118.0000 Calcium (test code = Calcium) 9.1000 mg/dL 8.0000-10.3000 Albumin (test code = Albumin) 4.6000 g/dL 3.5000-5.5000 Protein, Total (test code = Protein, 6.8000 g/dL 6.4000-8.10 00 Total) Sodium (test code = Sodium) 137.0000 mmol/L 128.0000-145.0000 Potassium (test code = Potassium) 3.7000 mmol/L 3.6000-5.1000 Chloride (test code = Chloride) 103.0000 mmol/L 96.0000-108.0000 eGFR Wvs-Ggxaawi-Wkkqflto (test code = 94.0000 60.0000-2 00.0000 eGFR Vfb-Qbkihhd-Zsfwnkzk) eGFR -Angolan (test code = eGFR 114.0000 60.0000- 200.0000 -Angolan) Cr Clearance (Est) (test code = Cr 123.3900 75.0000-115.0 000 Clearance (Est)) AST (SGOT) (test code = AST (SGOT)) 19.0000 11.0000-37.0 000 CO2 (test code = CO2) 26.0000 mmol/L 18.0000-33.0000 ALT (SGPT) (test code = ALT (SGPT)) 38.0000 10.0000-47.0 000 Alkaline Phosphatase (test code = Alkaline 94.0000 42.00 00-141.0000 Phosphatase) [id number] 08:22:00 Test Item Value Reference Range Comments Lymphocytes (test code = Lymphocytes) 1.3000 1.2000-3.2 000 MID (test code = MID) 0.3000 0.1000-1.1000 Neutrophils (test code = Neutrophils) 3.1000 1.5000-6.7 000 PLT (test code = PLT) 368.0000 140.0000-440.0000 RBC (test code = RBC) 4.2800 3.7000-4.9000 WBC (test code = WBC) 4.7000 4.0000-10.0000 MCHC (test code = MCHC) 33.7000 g/dL 31.5000-36.0000 HGB (test code = HGB) 13.0000 g/dL 11.2000-18.0000 MCH (test code = MCH) 30.4000 pg 27.0000-34.0000 MPV (test code = MPV) 7.7000 fL 6.8000-10.6000 MCV (test code = MCV) 90.2000 fL 80.0000-94.0000 RDW (test code = RDW) 15.1999 11.0000-18.0000 Lymphocytes % (test code = Lymphocytes %) 27.6000 % 22.400 0-43.6000 Neutrophils % (test code = Neutrophils %) 66.7000 % 48.900 0-69.9000 MID% (test code = MID%) 5.7000 % 1.1999-11 HCT (test code = HCT) 38.7000 % 34.0000-44.0000 [id number] 12:48:00 Test Item Value Reference Range Comments Creatinine (test code = Creatinine) 0.5000 mg/dL 0.5000-1.200 0 Cr Clearance (Est) (test code = Cr 173.0900 75.0000-115.0 000 Clearance (Est)) Glucose (test code = Glucose) 95.0000 mg/dL 70.0000-118.0000 BUN (test code = BUN) 13.0000 mg/dL 7.0000-22.0000 Sodium (test code = Sodium) 137.0000 mmol/L 128.0000-145.0000 Potassium (test code = Potassium) 4.0000 mmol/L 3.6000-5.1000 Chloride (test code = Chloride) 103.0000 mmol/L 96.0000-108.0000 CO2 (test code = CO2) 29.0000 mmol/L 18.0000-33.0000 Calcium (test code = Calcium) 9.7400 mg/dL 8.0000-10.3000 Alkaline Phosphatase (test code = Alkaline 93.0000 42.00 00-141.0000 Phosphatase) ALT (SGPT) (test code = ALT (SGPT)) 51.0000 10.0000-47.0 000 AST (SGOT) (test code = AST (SGOT)) 28.0000 11.0000-37.0 000 Bilirubin, Total (test code = Bilirubin, 0.5000 mg/dL 0.0000- 1.6000 Total) Albumin (test code = Albumin) 4.5000 g/dL 3.5000-5.5000 Protein, Total (test code = Protein, 6.9000 g/dL 6.4000-8.10 00 Total) eGFR -Angolan (test code = eGFR 169.0000 60.0000- 200.0000 -Angolan) eGFR Bwy-Hawzqio-Xyoeelpx (test code = 140.0000 60.0000-2 00.0000 eGFR Awd-Jsvmrcl-Isdtgdii) ALT (SGPT)[id number] 12:48:00 Test Item Value Reference Range Comments ALT (SGPT) (test code = ALT (SGPT)) 51.0000 10.0000-47.0 000 CO2 (test code = CO2) 29.0000 mmol/L 18.0000-33.0000 Alkaline Phosphatase (test code = Alkaline 93.0000 42.00 00-141.0000 Phosphatase) Cr Clearance (Est) (test code = Cr 173.0900 75.0000-115.0 000 Clearance (Est)) eGFR -Angolan (test code = eGFR 169.0000 60.0000- 200.0000 -Angolan) eGFR Xvv-Hkfqamg-Awpwvnvf (test code = 140.0000 60.0000-2 00.0000 eGFR Ubc-Qtdzsdh-Cujkgxva) AST (SGOT) (test code = AST (SGOT)) 28.0000 11.0000-37.0 000 Chloride (test code = Chloride) 103.0000 mmol/L 96.0000-108.0000 Potassium (test code = Potassium) 4.0000 mmol/L 3.6000-5.1000 Sodium (test code = Sodium) 137.0000 mmol/L 128.0000-145.0000 Protein, Total (test code = Protein, 6.9000 g/dL 6.4000-8.10 00 Total) Albumin (test code = Albumin) 4.5000 g/dL 3.5000-5.5000 Calcium (test code = Calcium) 9.7400 mg/dL 8.0000-10.3000 Glucose (test code = Glucose) 95.0000 mg/dL 70.0000-118.0000 Bilirubin, Total (test code = Bilirubin, 0.5000 mg/dL 0.0000- 1.6000 Total) Creatinine (test code = Creatinine) 0.5000 mg/dL 0.5000-1.200 0 BUN (test code = BUN) 13.0000 mg/dL 7.0000-22.0000 [id number] 12:47:00 Test Item Value Reference Range Comments WBC (test code = WBC) 4.9000 4.0000-10.0000 Lymphocytes % (test code = Lymphocytes %) 28.7000 % 22.400 0-43.6000 MID% (test code = MID%) 5.6000 % 1.2000-11.2000 Neutrophils % (test code = Neutrophils %) 65.7000 % 48.900 0-69.9000 Lymphocytes (test code = Lymphocytes) 1.4000 1.2000-3.2 000 MID (test code = MID) 0.3000 0.1000-1.1000 Neutrophils (test code = Neutrophils) 3.2000 1.5000-6.7 000 RBC (test code = RBC) 4.2400 3.7000-4.9000 HGB (test code = HGB) 13.3000 g/dL 11.1999-18.0000 HCT (test code = HCT) 38.0000 % 34.0000-44.0000 MCV (test code = MCV) 89.6000 fL 80.0000-94.0000 MCH (test code = MCH) 31.4000 pg 27.0000-34.0000 MCHC (test code = MCHC) 35.0000 g/dL 31.5000-36.0000 RDW (test code = RDW) 14.1000 11.0000-18.0000 PLT (test code = PLT) 320.0000 140.0000-440.0000 MPV (test code = MPV) 7.6000 fL 6.8000-10.6000 [id number] 12:47:00 Test Item Value Reference Range Comments PLT (test code = PLT) 320.0000 140.0000-440.0000 RBC (test code = RBC) 4.2400 3.7000-4.9000 WBC (test code = WBC) 4.9000 4.0000-10.0000 Neutrophils (test code = Neutrophils) 3.2000 1.5000-6.7 000 MID (test code = MID) 0.3000 0.1000-1.1000 Lymphocytes (test code = Lymphocytes) 1.4000 1.2000-3.2 000 HGB (test code = HGB) 13.3000 g/dL 11.2000-18.0000 MCHC (test code = MCHC) 35.0000 g/dL 31.5000-36.0000 MCV (test code = MCV) 89.6000 fL 80.0000-94.0000 MPV (test code = MPV) 7.6000 fL 6.8000-10.6000 MCH (test code = MCH) 31.4000 pg 27.0000-34.0000 HCT (test code = HCT) 38.0000 % 34.0000-44.0000 Neutrophils % (test code = Neutrophils %) 65.7000 % 48.900 0-69.9000 MID% (test code = MID%) 5.6000 % .1999-.1999 Lymphocytes % (test code = Lymphocytes %) 28.7000 % 22.400 0-43.6000 RDW (test code = RDW) 14.1000 11.0000-18.0000 [id number] 13:48:00 Test Item Value Reference Range Comments RDW (test code = RDW) 14.3000 11.0000-18.0000 Lymphocytes % (test code = Lymphocytes %) 24.1000 % 22.400 0-43.6000 MID% (test code = MID%) 5.0000 % .1999- Neutrophils % (test code = Neutrophils %) 70.9000 % 48.900 0-69.9000 HCT (test code = HCT) 39.9000 % 34.0000-44.0000 MCH (test code = MCH) 31.5000 pg 27.0000-34.0000 MPV (test code = MPV) 7.7000 fL 6.8000-10.6000 MCV (test code = MCV) 91.7000 fL 80.0000-94.0000 MCHC (test code = MCHC) 34.3000 g/dL 31.5000-36.0000 HGB (test code = HGB) 13.7000 g/dL 11.2000-18.0000 MID (test code = MID) 0.3000 0.1000-1.1000 Lymphocytes (test code = Lymphocytes) 1.4000 1.2000-3.2 000 Neutrophils (test code = Neutrophils) 4.1000 1.5000-6.7 000 WBC (test code = WBC) 5.8000 4.0000-10.0000 PLT (test code = PLT) 310.0000 140.0000-440.0000 RBC (test code = RBC) 4.3500 3.7000-4.9000 Alkaline [id number] 13:48:00 Test Item Value Reference Range Comments Alkaline Phosphatase (test code = Alkaline 93.0000 42.00 00-141.0000 Phosphatase) ALT (SGPT) (test code = ALT (SGPT)) 14.0000 10.0000-47.0 000 AST (SGOT) (test code = AST (SGOT)) 14.0000 11.0000-37.0 000 Chloride (test code = Chloride) 102.0000 mmol/L 96.0000-108.0000 CO2 (test code = CO2) 29.0000 mmol/L 18.0000-33.0000 Sodium (test code = Sodium) 140.0000 mmol/L 128.0000-145.0000 Potassium (test code = Potassium) 4.0000 mmol/L 3.6000-5.1000 eGFR -Angolan (test code = eGFR 98.0000 60.0000- 200.0000 -Angolan) eGFR Vwl-Ijrjdha-Jcyrjufy (test code = 81.0000 60.0000-2 00.0000 eGFR Rnq-Yhmklwf-Eqzajezn) Cr Clearance (Est) (test code = Cr 107.6200 75.0000-115.0 000 Clearance (Est)) Protein, Total (test code = Protein, 6.8000 g/dL 6.4000-8.10 00 Total) Albumin (test code = Albumin) 4.5000 g/dL 3.5000-5.5000 Glucose (test code = Glucose) 85.0000 mg/dL 70.0000-118.0000 Creatinine (test code = Creatinine) 0.8000 mg/dL 0.5000-1.200 0 Bilirubin, Total (test code = Bilirubin, 0.6000 mg/dL 0.0000- 1.6000 Total) BUN (test code = BUN) 10.0000 mg/dL 7.0000-22.0000 Calcium (test code = Calcium) 9.8900 mg/dL 8.0000-10.3000 [id number] 13:48:00 Test Item Value Reference Range Comments WBC (test code = WBC) 5.8000 4.0000-10.0000 Lymphocytes % (test code = Lymphocytes %) 24.1000 % 22.400 0-43.6000 MID% (test code = MID%) 5.0000 % 1.2000-11.2000 Neutrophils % (test code = Neutrophils %) 70.9000 % 48.900 0-69.9000 Lymphocytes (test code = Lymphocytes) 1.4000 1.2000-3.2 000 MID (test code = MID) 0.3000 0.1000-1.1000 Neutrophils (test code = Neutrophils) 4.1000 1.5000-6.7 000 RBC (test code = RBC) 4.3500 3.7000-4.9000 HGB (test code = HGB) 13.7000 g/dL 11.2000-18.0000 HCT (test code = HCT) 39.9000 % 34.0000-44.0000 MCV (test code = MCV) 91.7000 fL 80.0000-94.0000 MCH (test code = MCH) 31.5000 pg 27.0000-34.0000 MCHC (test code = MCHC) 34.3000 g/dL 31.5000-36.0000 RDW (test code = RDW) 14.3000 11.0000-18.0000 PLT (test code = PLT) 310.0000 140.0000-440.0000 MPV (test code = MPV) 7.7000 fL 6.8000-10.6000 [id number] 13:48:00 Test Item Value Reference Range Comments Creatinine (test code = Creatinine) 0.8000 mg/dL 0.5000-1.200 0 Cr Clearance (Est) (test code = Cr 107.6200 75.0000-115.0 000 Clearance (Est)) Glucose (test code = Glucose) 85.0000 mg/dL 70.0000-118.0000 BUN (test code = BUN) 10.0000 mg/dL 7.0000-22.0000 Sodium (test code = Sodium) 140.0000 mmol/L 128.0000-145.0000 Potassium (test code = Potassium) 4.0000 mmol/L 3.6000-5.1000 Chloride (test code = Chloride) 102.0000 mmol/L 96.0000-108.0000 CO2 (test code = CO2) 29.0000 mmol/L 18.0000-33.0000 Calcium (test code = Calcium) 9.8900 mg/dL 8.0000-10.3000 Alkaline Phosphatase (test code = Alkaline 93.0000 42.00 00-141.0000 Phosphatase) ALT (SGPT) (test code = ALT (SGPT)) 14.0000 10.0000-47.0 000 AST (SGOT) (test code = AST (SGOT)) 14.0000 11.0000-37.0 000 Bilirubin, Total (test code = Bilirubin, 0.6000 mg/dL 0.0000- 1.6000 Total) Albumin (test code = Albumin) 4.5000 g/dL 3.5000-5.5000 Protein, Total (test code = Protein, 6.8000 g/dL 6.4000-8.10 00 Total) eGFR -Angolan (test code = eGFR 98.0000 60.0000- 200.0000 -Angolan) eGFR Sby-Uphtmdn-Ecnufvcy (test code = 81.0000 60.0000-2 00.0000 eGFR Djs-Bvurgnn-Rkwmbahj) Bacteria identified in Unspecified specimen by Anaerobe [id number] 11:07:00Anaerobic CultureBacteria identified in Unspecified specimen by Anaerobe+Aerobe [id number] 13:10:00 Test Item Value Reference Range Comments wound (aerobic) / gram stain (test code = wound (aerobic) / gram stain) results (test code = results) oxacillin/nafcillin (test code = S reaction <=0.25 yamilet oxacillin/nafcillin) trimethoprim/sulfamethoxazole (test S reaction <=0.5/9.5 yamilet code = trimethoprim/sulfamethoxazole) clindamycin (test code = S reaction <=0.5 yamilet clindamycin) erythromycin (test code = S reaction <=0.5 yamilet erythromycin) tetracycline (test code = S reaction <=4 yamilet tetracycline) vancomycin (test code = vancomycin) S reaction 0.5 yamilet linezolid (test code = linezolid) S reaction 2 yamilet [id number] 14:42:[address] [address] Patient: PEYTON ROD : 1985 Sex: F Address: [facility] [place] [address] Unit #: [id number] REQ SEQ #: [id number] Location: [address] [place] [address] Room #: [id number] Ordering: RENETTA BISHOP MD Diagnosis: [id number]/MALIGNANT NEOPLASM OF UNSPECIFIED SITE OF L CHEST PORTABLE - 1 VIEW Clinical Information: [id number]/MALIGNANT NEOPLASM OF U NSPECIFIED SITE OF L S.br IN PACU POST PORT PLACEMENT FINDINGS: Right IJ Port-A-Cath in place with catheter tip overlying the high right atrium. Slightly low lung volumes. Heart size and pulmonary vasculature within normal limits. Pulmonary ochoa within normal limits. No pulmonary consolidations, pneumothorax or pleural effusions evident. No acute osseous abnormality. Post surgical changes of recent left mastectomy with surgical drains in place. Small amount of gas leftlower lateral chest wall from recent surgery. Surgical clips in place. Mild gaseous distention stomach. IMPRESSION: 1. No evidence of acute cardiopulmonary disease. 2. No pneumothorax postright IJ Port-A-Cath placement. 3. Post surgical changes of left mastectomy. 4. Mild gastric distention. Final report electronically signed by: Jesus Draper DO Signed by: CHRISTINA DRAPER DO 03/25/20 2413 cc: CHRISTINA DRAPER [facility] [id number] 13:06:[address] [address] Patient: PEYTON ROD : 1985 Sex: F Address: [address] [place] [address] [place] [address] Unit #: [id number] [facility] SEQ #: [id number] Location: SURGERY Room #: Ordering: RENETTA BISHOP MD Diagnosis: [id number]/MALIGNANT NEOPLASM OF UNSPECIFIED SITE OF L SENTINEL LYMPH NODE INJECTION History: [id number]/MALIGNANT NEOPLASM OF UNSPECIFIED SITE OF L [id number]/MALIGNANT NEOPLASM OF UNSPECIFIED SITE OF L S.br left breast breast ca History: Breast cancer. Patient was prepped in surgery in the typical fashion. 0.5 mCi Technetium Lymphoseek was injected in the OR by Dr. Bishpo into the breast. No images are obtained. Specimen radiograph obtained postprocedure demonstrating a surgical clip orbiopsy clip in the specimen. Impression:: Technically successful injection for [place] node biopsy. Final report electronicallysigned by: Viridiana Bergeron MD Signed by: VIRIDIANA BERGERON II, MD 03/25/20 9094 cc: VIRIDIANA CLEMENS MD, MINDY MDpregnancy test [id number] 09:54:00 Test Item Value Reference Range Comments test urine (test code = test negative negative urine) test [id number] 09:54:00 Test Item Value Reference Range Comments test urine (test code = test negative negative urine) test [id number] 09:54:00 Test Item Value Reference Range Comments test urine (test code = test negative negative urine) test, [id number] 09:30:00 Test Item Value Reference Range Comments Urine HCG, Qualitative (test code = 896602778) Negative N egative Pathology [id number] 00:00:00Path ReportPathology [id number] 00:00:00 Path ReportCoronavirus (COVID-19)(PCR)2020-03-22 12:37:00 Test Item Value Reference Range Comments Coronavirus Not Detected Not Detected This test was de veloped and its (COVID-19)(PCR) (test performanc e code = Coronavirus characteristi csdetermined by (COVID-19)(PCR)) [facility]. This test has not beenFDA von red or approved. This test has be en authorized byFDA under an Emergen cy Use Authorization (E UA). This testis only authorized for the duration of time the declara tionthat circumstances ex ist justifying the authorization of the emergency use of in vitro diag nostic tests fordetection of SARS-CoV-2 virus and/or diagnosis of COVID-19infectio n under section 564(b)(1) of the Act, 21 U.S.C.360bbb-3(b )(1), unless the authorization is terminated orrevoked sooner . When diagnostic testing is negat colten, thepossibility of a false negat colten result should be consideredin the context of a patient's recent exposures and thepresence of c linical signs and symptoms consist ent withCOVID-19. An individual wi thout symptoms of COVID-19 andwho is not shedding SARS-CoV-2 virus would expect to have anegative ( not detected) result in this a ssay. [id number] 12:37:00 Test Item Value Reference Range Comments N/A (test code = N/A) Comment . ReceivedPe rformed at: [facility] [place], [place] [id number] Director: Antonio Barbosa MD, [facility] ne: [phone] Basic metabolic 1999 panel - Serum or [id number] 12:10:00 Test Item Value Reference Range Comments sodium (test code = sodium) 142 mmol/L 137-144 potassium (test code = potassium) 3.9 mmol/L 3.1-5.1 chloride (test code = chloride) 110 mmol/L 101-110 carbon dioxide (test code = carbon dioxide) 28 mmol/L 22-2 9 glucose (test code = glucose) 89 mg/dL 70-105 BUN (test code = BUN) 12.0 mg/dL 7.0-18.7 creatinine (test code = creatinine) 0.80 mg/dL 0.57-1.11 anion gap (test code = anion gap) 8 mmol/L 7-16 calcium (test code = calcium) 9.3 mg/dL 8.4-10.2 Basic metabolic 1999 panel - Serum or [id number] 12:10:00 Test Item Value Reference Range Comments sodium (test code = sodium) 142 mmol/L 137-144 potassium (test code = potassium) 3.9 mmol/L 3.1-5.1 chloride (test code = chloride) 110 mmol/L 101-110 carbon dioxide (test code = carbon dioxide) 28 mmol/L 22-2 9 glucose (test code = glucose) 89 mg/dL 70-105 BUN (test code = BUN) 12.0 mg/dL 7.0-18.7 creatinine (test code = creatinine) 0.80 mg/dL 0.57-1.11 anion gap (test code = anion gap) 8 mmol/L 7-16 calcium (test code = calcium) 9.3 mg/dL 8.4-10.2 Basic metabolic 2000 panel - Serum or [id number] 12:10:00 Test Item Value Reference Range Comments sodium (test code = sodium) 142 mmol/L 137-144 potassium (test code = potassium) 3.9 mmol/L 3.1-5.1 chloride (test code = chloride) 110 mmol/L 101-110 carbon dioxide (test code = carbon dioxide) 28 mmol/L 22-2 9 glucose (test code = glucose) 89 mg/dL 70-105 BUN (test code = BUN) 12.0 mg/dL 7.0-18.7 creatinine (test code = creatinine) 0.80 mg/dL 0.57-1.11 anion gap (test code = anion gap) 8 mmol/L 7-16 calcium (test code = calcium) 9.3 mg/dL 8.4-10.2 Basic metabolic 2000 panel - Serum or [id number] 12:10:00 Test Item Value Reference Range Comments sodium (test code = sodium) 142 mmol/L 137-144 potassium (test code = potassium) 3.9 mmol/L 3.1-5.1 chloride (test code = chloride) 110 mmol/L 101-110 carbon dioxide (test code = carbon dioxide) 28 mmol/L 22-2 9 glucose (test code = glucose) 89 mg/dL 70-105 BUN (test code = BUN) 12.0 mg/dL 7.0-18.7 creatinine (test code = creatinine) 0.80 mg/dL 0.57-1.11 anion gap (test code = anion gap) 8 mmol/L 7-16 calcium (test code = calcium) 9.3 mg/dL 8.4-10.2 PT and aPTT panel - Platelet poor plasma by Coagulation [id number] 12:07:00 Test Item Value Reference Range Comments partial thromboplastin time (test code = 35.1 seconds 24.6-36 .0 partial thromboplastin time) PT and aPTT panel - Platelet poor plasma by Coagulation [id number] 12:07:00 Test Item Value Reference Range Comments partial thromboplastin time (test code = 35.1 seconds 24.6-36 .0 partial thromboplastin time) PT and aPTT panel - Platelet poor plasma by Coagulation [id number] 12:07:00 Test Item Value Reference Range Comments partial thromboplastin time (test code = 35.1 seconds 24.6-36 .0 partial thromboplastin time) PT and aPTT panel - Platelet poor plasma by Coagulation [id number] 12:07:00 Test Item Value Reference Range Comments partial thromboplastin time (test code = 35.1 seconds 24.6-36 .0 partial thromboplastin time) [id number] 12:06:00 Test Item Value Reference Range Comments prothrombin time (test code = prothrombin time) 12.7 seconds 10.8-14.2 INR (test code = INR) 0.92 PT/[id number] 12:06:00 Test Item Value Reference Range Comments prothrombin time (test code = prothrombin time) 12.7 seconds 10.8-14.2 INR (test code = INR) 0.92 [id number] 12:06:00 Test Item Value Reference Range Comments prothrombin time (test code = prothrombin time) 12.7 seconds 10.8-14.2 INR (test code = INR) 0.92 [id number] 12:06:00 Test Item Value Reference Range Comments prothrombin time (test code = prothrombin time) 12.7 seconds 10.8-14.2 INR (test code = INR) 0.92 CBC W Differential panel, method unspecified - [id number] 11:57:00 Test Item Value Reference Range Comments white blood count (test code = white blood count) 6.8 K/mm3 3.6-11.1 red blood count (test code = red blood count) 4.42 M/uL 3. 69-4.88 hemoglobin (test code = hemoglobin) 14.3 g/dL 11.4-14.4 hematocrit (test code = hematocrit) 41.7 % 33.3-41.4 mean corpuscular volume (test code = mean 94.3 fL 79.3-9 4.8 corpuscular volume) mean corpuscular hemoglobin (test code = mean 32.3 pg 26 .8-33.2 corpuscular hemoglobin) mean corpuscular HGB conc (test code = mean 34.3 g/dL 33.5 -35.5 corpuscular HGB conc) red cell distribution width (test code = red cell 13.6 % 12.0-15.1 distribution width) platelet count (test code = platelet count) 282 K/mm3 165- 353 mean platelet volume (test code = mean platelet 7.3 fL 7.5-10.6 volume) neutrophils % (test code = neutrophils %) 70.6 % 43.2-7 1.5 lymph % (test code = lymph %) 21.1 % 16.8-43.4 mono % (test code = mono %) 5.7 % 4.6-12.4 eos % (test code = eos %) 1.9 % 0.7-7.8 baso % (test code = baso %) 0.7 % 0.2-1.2 neutrophil # (test code = neutrophil #) 4.8 K/mm3 1.9-7.2 lymph # (test code = lymph #) 1.4 K/mm3 1.1-2.7 mono # (test code = mono #) 0.4 K/mm3 0.3-0.8 eosinophil # (test code = eosinophil #) 0.1 K/mm3 0.0-0.5 baso # (test code = baso #) 0.0 K/mm3 0.0-0.1 CBC W Differential panel, method unspecified - [id number] 11:57:00 Test Item Value Reference Range Comments white blood count (test code = white blood count) 6.8 K/mm3 3.6-11.1 red blood count (test code = red blood count) 4.42 M/uL 3. 69-4.88 hemoglobin (test code = hemoglobin) 14.3 g/dL 11.4-14.4 hematocrit (test code = hematocrit) 41.7 % 33.3-41.4 mean corpuscular volume (test code = mean 94.3 fL 79.3-9 4.8 corpuscular volume) mean corpuscular hemoglobin (test code = mean 32.3 pg 26 .8-33.2 corpuscular hemoglobin) mean corpuscular HGB conc (test code = mean 34.3 g/dL 33.5 -35.5 corpuscular HGB conc) red cell distribution width (test code = red cell 13.6 % 12.0-15.1 distribution width) platelet count (test code = platelet count) 282 K/mm3 165- 353 mean platelet volume (test code = mean platelet 7.3 fL 7.5-10.6 volume) neutrophils % (test code = neutrophils %) 70.6 % 43.2-7 1.5 lymph % (test code = lymph %) 21.1 % 16.8-43.4 mono % (test code = mono %) 5.7 % 4.6-12.4 eos % (test code = eos %) 1.9 % 0.7-7.8 baso % (test code = baso %) 0.7 % 0.2-1.2 neutrophil # (test code = neutrophil #) 4.8 K/mm3 1.9-7.2 lymph # (test code = lymph #) 1.4 K/mm3 1.1-2.7 mono # (test code = mono #) 0.4 K/mm3 0.3-0.8 eosinophil # (test code = eosinophil #) 0.1 K/mm3 0.0-0.5 baso # (test code = baso #) 0.0 K/mm3 0.0-0.1 CBC W Differential panel, method unspecified - [id number] 11:57:00 Test Item Value Reference Range Comments white blood count (test code = white blood count) 6.8 K/mm3 3.6-11.1 red blood count (test code = red blood count) 4.42 M/uL 3. 69-4.88 hemoglobin (test code = hemoglobin) 14.3 g/dL 11.4-14.4 hematocrit (test code = hematocrit) 41.7 % 33.3-41.4 mean corpuscular volume (test code = mean 94.3 fL 79.3-9 4.8 corpuscular volume) mean corpuscular hemoglobin (test code = mean 32.3 pg 26 .8-33.2 corpuscular hemoglobin) mean corpuscular HGB conc (test code = mean 34.3 g/dL 33.5 -35.5 corpuscular HGB conc) red cell distribution width (test code = red cell 13.6 % 12.0-15.1 distribution width) platelet count (test code = platelet count) 282 K/mm3 165- 353 mean platelet volume (test code = mean platelet 7.3 fL 7.5-10.6 volume) neutrophils % (test code = neutrophils %) 70.6 % 43.2-7 1.5 lymph % (test code = lymph %) 21.1 % 16.8-43.4 mono % (test code = mono %) 5.7 % 4.6-12.4 eos % (test code = eos %) 1.9 % 0.7-7.8 baso % (test code = baso %) 0.7 % 0.2-1.2 neutrophil # (test code = neutrophil #) 4.8 K/mm3 1.9-7.2 lymph # (test code = lymph #) 1.4 K/mm3 1.1-2.7 mono # (test code = mono #) 0.4 K/mm3 0.3-0.8 eosinophil # (test code = eosinophil #) 0.1 K/mm3 0.0-0.5 baso # (test code = baso #) 0.0 K/mm3 0.0-0.1 CBC W Differential panel, method unspecified - [id number] 11:57:00 Test Item Value Reference Range Comments white blood count (test code = white blood count) 6.8 K/mm3 3.6-11.1 red blood count (test code = red blood count) 4.42 M/uL 3. 69-4.88 hemoglobin (test code = hemoglobin) 14.3 g/dL 11.4-14.4 hematocrit (test code = hematocrit) 41.7 % 33.3-41.4 mean corpuscular volume (test code = mean 94.3 fL 79.3-9 4.8 corpuscular volume) mean corpuscular hemoglobin (test code = mean 32.3 pg 26 .8-33.2 corpuscular hemoglobin) mean corpuscular HGB conc (test code = mean 34.3 g/dL 33.5 -35.5 corpuscular HGB conc) red cell distribution width (test code = red cell 13.6 % 12.0-15.1 distribution width) platelet count (test code = platelet count) 282 K/mm3 165- 353 mean platelet volume (test code = mean platelet 7.3 fL 7.5-10.6 volume) neutrophils % (test code = neutrophils %) 70.6 % 43.2-7 1.5 lymph % (test code = lymph %) 21.1 % 16.8-43.4 mono % (test code = mono %) 5.7 % 4.6-12.4 eos % (test code = eos %) 1.9 % 0.7-7.8 baso % (test code = baso %) 0.7 % 0.2-1.2 neutrophil # (test code = neutrophil #) 4.8 K/mm3 1.9-7.2 lymph # (test code = lymph #) 1.4 K/mm3 1.1-2.7 mono # (test code = mono #) 0.4 K/mm3 0.3-0.8 eosinophil # (test code = eosinophil #) 0.1 K/mm3 0.0-0.5 baso # (test code = baso #) 0.0 K/mm3 0.0-0.1 Blood leukocytes automated count (number/volume)2020-03-09 11:04:00 Test Item Value Reference Range Comments White Blood Count (test code = 6690-2) 6.8 3.6-11.1 Blood erythrocytes automated count (number/volume)2020-03-09 11:04:00 Test Item Value Reference Range Comments Red Blood Count (test code = 789-8) 4.42 3.69-4.88 Blood hemoglobin measurement (mass/volume)2020-03-09 11:04:00 Test Item Value Reference Range Comments Hemoglobin (test code = 718-7) 14.3 11.4-14.4 Automated blood hematocrit (volume fraction)2020-03-09 11:04:00 Test Item Value Reference Range Comments Hematocrit (test code = 4544-3) 41.7 33.3-41.4 Automated erythrocyte mean corpuscular [id number] 11:04:00 Test Item Value Reference Range Comments Mean Corpuscular Volume (test code = 787-2) 94.3 79.3 -94.8 Automated erythrocyte mean corpuscular hemoglobin (mass per erythrocyte) 2020-03-09 11:04:00 Test Item Value Reference Range Comments Mean Corpuscular Hemoglobin (test code = 785-6) 32.3 26.8-33.2 Automated erythrocyte mean corpuscular hemoglobin concentration measurement (mass/volume)2020-03-09 11:04:00 Test Item Value Reference Range Comments Mean Corpuscular Hemoglobin Concent (test code = 34.3 33.5-35.5 786-4) Automated erythrocyte distribution width [id number] 11:04:00 Test Item Value Reference Range Comments Red Cell Distribution Width (test code = 788-0) 13.6 12.0-15.1 Automated blood platelet count (count/volume)2020-03-09 11:04:00 Test Item Value Reference Range Comments Platelet Count (test code = 777-3) 282 165-353 Automated blood platelet mean volume oaqcfyylril2789-56-34 11:04:00 Test Item Value Reference Range Comments Mean Platelet Volume (test code = 24556-2) 7.3 7.5-1 0.6 Automated blood neutrophil count as percentage of total fgsvembyhy5844-74-18 11:04:00 Test Item Value Reference Range Comments Neutrophils (%) (Auto) (test code = 770-8) 70.6 43.2- 71.5 Automated blood lymphocyte count as percentage of total chpuwnncnt7411-79-44 11:04:00 Test Item Value Reference Range Comments Lymphocytes (%) (Auto) (test code = 736-9) 21.1 16.8- 43.4 Automated blood monocyte count as percentage of total gdoowzppbf9219-32-80 11:04:00 Test Item Value Reference Range Comments Monocytes (%) (Auto) (test code = 5905-5) 5.7 4.6-12 .4 Automated blood eosinophil count as percentage of total krzxokyzov3219-08-34 11:04:00 Test Item Value Reference Range Comments Eosinophils (%) (Auto) (test code = 713-8) 1.9 0.7-7 .8 Automated blood basophil count as percentage of total usciqtlplt5187-10-63 11:04:00 Test Item Value Reference Range Comments Basophils (%) (Auto) (test code = 706-2) 0.7 0.2-1.2 Blood neutrophils automated count (number/volume)2020-03-09 11:04:00 Test Item Value Reference Range Comments Neutrophils # (Auto) (test code = 751-8) 4.8 1.9-7.2 Automated blood lymphocyte count (number/volume)2020-03-09 11:04:00 Test Item Value Reference Range Comments Lymphocytes # (Auto) (test code = 731-0) 1.4 1.1-2.7 Blood monocytes automated count (number/volume)2020-03-09 11:04:00 Test Item Value Reference Range Comments Monocytes # (Auto) (test code = 742-7) 0.4 0.3-0.8 Automated blood eosinophil ridvi7294-70-65 11:04:00 Test Item Value Reference Range Comments Eosinophils # (Auto) (test code = 711-2) 0.1 0.0-0.5 Automated blood basophil count (count/volume)2020-03-09 11:04:00 Test Item Value Reference Range Comments Basophils # (Auto) (test code = 704-7) 0.0 0.0-0.1 Prothrombin time (PT) in platelet poor plasma by coagulation [id number] 11:04:00 Test Item Value Reference Range Comments Prothrombin Time (test code = 5902-2) 12.7 10.8-14.2 INR in Platelet poor plasma by Coagulation [id number] 11:04:00 Test Item Value Reference Range Comments Prothromb Time International 0.92 INR Therapeutic Range:2.0-3.0 Ratio (test code = 6301-6) Oral Anticoagulant Therapy2.5-3.5 P rosthetic Heart Valves, Recurren t Systemic Embolism Blood activated partial thromboplastin time (aPTT) by coagulation assay 2020-03-09 11:04:00 Test Item Value Reference Range Comments Activated Partial Thromboplast Time (test code = 35.1 24.6-36.0 3173-2) Sodium [Moles/volume] in Bpzyu4921-01-58 11:04:00 Test Item Value Reference Range Comments Sodium Level (test code = 2947-0) 142 137-144 Potassium [Moles/volume] in Serum or Nerekn9608-54-84 11:04:00 Test Item Value Reference Range Comments Potassium Level (test code = 2823-3) 3.9 3.1-5.1 Chloride vyabh7334-94-96 11:04:00 Test Item Value Reference Range Comments Chloride Level (test code = 191620137) 110 101-110 Carbon dioxide [id number] 11:04:00 Test Item Value Reference Range Comments Carbon Dioxide Level (test code = 50859685) 28 22-2 9 Glucose [Moles/volume] in Serum or Wuhaug7384-01-29 11:04:00 Test Item Value Reference Range Comments Glucose Level (test code = 61040-9) 89 70-105 EGY5544-02-08 11:04:00 Test Item Value Reference Range Comments Blood Urea Nitrogen (test code = 669454524) 12.0 7.0- 18.7 Creatinine wqeze5234-72-69 11:04:00 Test Item Value Reference Range Comments Creatinine (test code = 428161708) 0.80 0.57-1.11 Anion gap dwmttgegykh9693-50-53 11:04:00 Test Item Value Reference Range Comments Anion Gap (test code = 80415773) 8 7-16 Gmrynvy2446-03-13 11:04:00 Test Item Value Reference Range Comments Calcium Level (test code = 56670389) 9.3 8.4-10.2 Pathology [id number] 00:00:00Path Report Assessments Condition Name Status Diagnosis Date Treating Clinici an History of malignant neoplasm of breast Active 15:38:25 Abscess of breast Active 2020-04-26 15:38:32 History of malignant neoplasm of breast Active 12:55:46 Postoperative wound abscess 2020-04-11 12:55:52 Postoperative seroma 2020-04-11 13:08:34 Postoperative wound abscess Active 2020-04-11 13:17:00 Postoperative seroma Active 2020-04-08 09:58:15 History of malignant neoplasm of breast Active 09:15:11 Malignant neoplasm of female breast Active 2020-04-04 0 6:40:09 Malignant neoplasm of female breast Active 2020-03-09 0 9:53:46 Surgical repair Active 2020-02-22 12:12:35 Malignant neoplasm of female breast Active 2020-02-22 1 2:13:59 Malignant neoplasm of female breast Active 2020-02-16 1 7:03:57 Abnormal findings on diagnostic imaging Active 14:29:40 of breast Cough Active Wheezing Active Allergic rhinitis, unspecified Active Body mass index (BMI) 26.0-26.9, adult Active Wheezing Active Acute recurrent sinusitis, unspecified Active Cough Active Body mass index (BMI) 25.0-25.9, adult Active Encounters Start End Encounter Admission Attending Care Care Encounter Date/Time Date/Time Type Type Clinicians Facility Department ID 2020-07-21 2020-07-21 Outpatient Star Wild rn [id number] 00:00:00 00:00:00 [facility] Oncology Oncology [facility] 2020-07-20 2020-07-20 Outpatient Star Wild rn [id number] 00:00:00 00:00:00 [facility] Oncology Oncology [facility] 2020-07-14 2020-07-14 Outpatient Star Wild rn [id number] 00:00:00 00:00:00 [facility] Medical Oncology Oncology [facility] 2020-07-13 2020-07-13 Junito Gustafson [facility] [id number] 00:00:00 00:00:00 Elise Page [facility] Oncology Oncology [facility] 2020-07-07 2020-07-07 Outpatient Star Wild rn [id number] 00:00:00 00:00:00 [facility] Oncology Oncology [facility] 2020-07-06 2020-07-06 Star Pennington [facility] 2 [id number] 00:00:00 00:00:00 [facility] Oncology Oncology [facility] 2020-06-30 2020-06-30 Outpatient Star Wild rn [id number] 00:00:00 00:00:00 [facility] Oncology Oncology [facility] 2020-06-23 2020-06-23 Outpatient Star Wild rn [id number] 00:00:00 00:00:00 [facility] Oncology Oncology [facility] 2020-06-22 2020-06-22 Star Wild [facility] [id number] 00:00:00 00:00:00 Dr. Arjun parekh [facility] Oncology Oncology [facility] 2020-06-16 2020-06-16 Outpatient Star Wild [facility] rn [id number] 00:00:00 00:00:00 [facility] On[facility] [place] 2020-06-13 2020-06-13 Outpatient Davidnathalie Davidnathalie n [id number] 00:00:00 00:00:[address] [facility] Oncology Oncology [facility] [place] 2020-06-09 2020-06-09 Outpatient Issacstephen Star Anibal rn [id number] 00:00:00 00:00:00 [facility] Oncology Oncology [facility] 2020-06-08 2020-06-08 Gurjit Davidnathalie [place] 2 [id number] 00:00:00 00:00:00 [facility] Oncology [facility]cology [facility] [place] 2020-06-02 2020-06-02 Outpatient Youngaleshia Davidnathalie Barnett rn [id number] 00:00:00 00:00:00 [facility] Oncology Oncology [facility] 2020-06-01 2020-06-01 Outpatient Issacstephen Davidnathalie Barnett rn [id number] 00:00:00 00:00:00 [facility] Oncology Oncology [facility] [place] 2020 2020 Outpatient Issacstephen Davidnathalie Barnett rn [id number] 00:00:00 00:00:00 [facility] Oncology Oncology [facility] [place] 2020-05-25 2020-05-25 Youngaleshia Davidnathalie [place] [id number] 00:00:00 00:00:00 Dr. Díaz [facility] Oncology Oncology [facility] [place] 2020-05-19 2020-05-19 Outpatient Issacstephen Davidnathalie Barnett rn [id number] 00:00:00 00:00:00 [facility] Oncology Oncology [facility] [place] 2020-05-18 2020-05-18 Junito Davidnathalie [facility] [id number] 00:00:00 00:00:00 Dr. Díaz [facility] Medical Oncology Oncology [facility] [place] 2020-05-10 2020-05-10 Outpatient Star Graves n [id number] 00:00:00 00:00:[address] [facility] Oncology Oncology [facility] [place] 2020-04-28 2020-04-28 Outpatient YoungaleshiaStar rn [id number] 00:00:00 00:00:00 [facility] Oncology Oncology [facility] [place] 2020-04-27 2020-04-27 Outpatient Star Graves n [id number] 00:00:00 00:00:00 n Medical Medical Oncology [facility]cology [facility] [place] 2020-04-26 2020-04-26 Outpatient Star Hernandezer n [id number] 00:00:00 00:00:00 [facility] Medical Oncology [facility]cology [facility] [place] 2020-04-26 2020-04-26 Edenilson Aguirre [id number] 00:00:00 00:00:00 [facility] [id number] PASUP: [address] [place] [address], Ph. 2020-04-22 2020-04-22 Outpatient Star Wild rn [id number] 00:00:00 00:00:00 [facility] Medical Oncology [facility] [place] 2020-04-21 2020-04-21 Outpatient Star Graves n [id number] 00:00:00 00:00:00 [facility] Medical Oncology Oncology [facility] [place] 2020-04-15 2020-04-15 Outpatient Star Hernandezer n [id number] 00:00:00 00:00:00 [facility] Medical Oncology [facility]cology [facility] [place] 2020-04-14 2020-04-14 Gorge Star Wild [facility] [id number] 00:00:00 00:00:00 Giovanna [facility] Oncology Oncology [facility] [place] 2020-04-12 2020-04-12 Outpatient Star Wildronnie rn [id number] 00:00:00 00:00:00 [facility] Oncology Oncology [facility] 2020-04-11 2020-04-11 Renetta Aguirre [id number] 00:00:00 00:00:00 [facility] [id number] MD: [address] [place] [address], Ph. 2020-04-08 2020-04-08 Outpatient BISHOP, [facility] [id number] 11:54:00 11:54:00 RENETTA Swanson 2020-04-08 2020-04-08 Outpatient Star Graves n [id number] 00:00:00 00:00:00 [facility] Medical Oncology [facility]cology [facility] [place] 2020-04-08 2020-04-08 Renetta Aguirre [id number] 00:00:00 00:00:00 [facility] Surgical Surgical [id number] MD: [address] [place] [address], Ph. 2020-04-05 2020-04-05 Outpatient Southeaster Southeaster n [id number] 00:00:00 00:00:00 Medical Medical Oncology [facility] [place] 2020-04-05 2020-04-05 Renetta Downseret [id number] 00:00:00 00:00:00 Bishop, Surgical Surgical [id number] MD: [address] [place] [address], Ph. 2020-03-31 2020-03-31 Renetta Downseret [id number] 00:00:00 00:00:00 Edna, Surgical Surgical [id number] MD: [address] [place] [address], Ph. 2020-03-25 2020-03-26 Outpatient BETTINA DODSON [facility] [id number] 00:00:00 13:11:00 RENETTA 83 2020-03-25 2020-03-25 Outpatient Southeaster [facility] n [id number] 00:00:00 00:00:00 n Medical Medical Oncology [facility] [place] 2020-03-19 2020-03-19 Outpatient Southeaster [facility] n [id number] 00:00:00 00:00:00 n Medical Medical Oncology [facility] [place] 2020-03-18 2020-03-18 Junito Pennington, [facility] [id number] 00:00:00 00:00:00 Giovanna Díaz n Medical Medical Oncology [facility] [place] 2020-03-09 2020-03-09 Renetta Downseret [id number] 00:00:00 00:00:00 Edna, Surgical Surgical [id number] MD: [address] [place] [address], Ph. 2020-03-07 2020-03-07 Outpatient Southeaster [facility] n [id number] 00:00:00 00:00:00 n Medical Medical Oncology [facility] [place] 2020-02-24 2020-02-24 Outpatient EL BETTINA BISHOP [facility] [id number] 14:02:00 14:02:00 RENETTA 85 2020-02-24 2020-02-24 Junito Pennington [facility] [id number] 00:00:00 00:00:00 Giovanna Díaz [facility] Oncology Oncology [facility] 2020-02-22 2020-02-22 Richard Aguirre [id number] 00:00:00 00:00:00 Jorge, Surgical Surgical [id number] PA: [address] [place] [address], Ph. 2020-02-18 2020-02-18 Outpatient [facility] [id number] 00:00:00 00:00:[address] [facility] Oncology Oncology [facility] 2020-02-16 2020-02-16 Outpatient [facility] [id number] 00:00:00 00:00:[address] [facility] Oncology Oncology [facility] 2020-02-16 2020-02-16 Renetta Aguirre [id number] 00:00:00 00:00:00 Edna, Surgical Surgical [id number] MD: [address] [place] [address], Ph. 2020-02-09 2020-02-09 Outpatient [facility] n [id number] 00:00:00 00:00:[address] [facility] Oncology Oncology [facility] 2020-02-09 2020-02-09 Renetta Johnt [id number] 00:00:00 00:00:00 Edna, Surgical Surgical [id number] MD: [address] [place] [address], Ph. 2019-01-09 2019-01-09 [facility] [id number] 10:15:00 10:15:00 Jessi Children [id number] s [id number] and [id number] [facility], 2018-10-15 2018-10-15 [facility] [id number] 10:00:00 10:00:00 Jessi Children [id number] s [id number] and [id number] [facility], [place] Immunizations Ordered Immunization Filled Immunization Date Status Commen ts Refusal Reason Name Name Pneumococcal 2020-03-26 Completed Polysacchride Vaccine 00:00:00 23-valent influenza, 2019-06-19 Completed injectable, 00:00:00 quadrivalent Payers Payer Name Policy Type Policy Number Effective Date Expiration D ate Plan of Treatment Planned Activity Planned Date Details Comments Future Appointment 2020-08-06 00:00:00 [facility], [address] [place] [address]; , [place] [address] Future Appointment 2020-08-02 13:00:00 [facility], [address] [place] [address]; , [place] [address] Social History Smoking Status Start Date Stop Date Former smoker 2020-03-26 08:40:00 Yes - but quit (former) 2020-07-13 00:00:00 2020-07-13 00:00 :00 Social History Observation Description Sex Female Vital Signs Vital Name Observation Time Observation Value Comments BP Diastolic 2020-04-26 00:00:00 69 mm[Hg] Height 2020-04-26 00:00:00 64 [in_i] BMI (Body Mass Index) 2020-04-26 00:00:00 26.6 kg/m2 BP Systolic 2020-04-26 00:00:00 126 mm[Hg] Body Weight 2020-04-26 00:00:00 155 [lb_av] Body Weight 2020-04-11 00:00:00 155 [lb_av] BP Diastolic 2020-04-11 00:00:00 80 mm[Hg] Height 2020-04-11 00:00:00 64 [in_i] BMI (Body Mass Index) 2020-04-11 00:00:00 26.6 kg/m2 BP Systolic 2020-04-11 00:00:00 111 mm[Hg] BP Diastolic 2020-04-08 00:00:00 79 mm[Hg] Height 2020-04-08 00:00:00 64 [in_i] BMI (Body Mass Index) 2020-04-08 00:00:00 26.6 kg/m2 BP Systolic 2020-04-08 00:00:00 129 mm[Hg] Body Weight 2020-04-08 00:00:00 155 [lb_av] BP Diastolic 2020-04-05 00:00:00 68 mm[Hg] Height 2020-04-05 00:00:00 64 [in_i] BMI (Body Mass Index) 2020-04-05 00:00:00 26.6 kg/m2 BP Systolic 2020-04-05 00:00:00 122 mm[Hg] Body Weight 2020-04-05 00:00:00 155 [lb_av] Height 2020-03-31 00:00:00 64 [in_i] BMI (Body Mass Index) 2020-03-31 00:00:00 26.6 kg/m2 Body Weight 2020-03-31 00:00:00 155 [lb_av] WEIGHT 2020-03-25 14:15:00 77.0000 kg HEIGHT 2020-03-25 14:15:00 162.833376 cm WEIGHT 2020-03-24 09:19:00 70.5 kg HEIGHT 2020-03-24 09:19:00 162.477228 cm WEIGHT 2020-03-09 14:21:00 70.882385 kg HEIGHT 2020-03-09 14:21:00 162.306508 cm BP Diastolic 2020-03-09 00:00:00 71 mm[Hg] Height 2020-03-09 00:00:00 64 [in_i] BMI (Body Mass Index) 2020-03-09 00:00:00 26.6 kg/m2 BP Systolic 2020-03-09 00:00:00 113 mm[Hg] Body Weight 2020-03-09 00:00:00 155 [lb_av] BP Diastolic 2020-02-22 00:00:00 74 mm[Hg] Height 2020-02-22 00:00:00 64 [in_i] BMI (Body Mass Index) 2020-02-22 00:00:00 26.6 kg/m2 BP Systolic 2020-02-22 00:00:00 116 mm[Hg] Body Weight 2020-02-22 00:00:00 155 [lb_av] BP Diastolic 2020-02-16 00:00:00 68 mm[Hg] Height 2020-02-16 00:00:00 64 [in_i] BMI (Body Mass Index) 2020-02-16 00:00:00 26.7 kg/m2 BP Systolic 2020-02-16 00:00:00 108 mm[Hg] Body Weight 2020-02-16 00:00:00 155.5 [lb_av] BP Diastolic 2020-02-09 00:00:00 88 mm[Hg] Height 2020-02-09 00:00:00 64 [in_i] BMI (Body Mass Index) 2020-02-09 00:00:00 27.1 kg/m2 BP Systolic 2020-02-09 00:00:00 131 mm[Hg] Body Weight 2020-02-09 00:00:00 158 [lb_av] BMI 2020-07-20 14:56:24 26.7800 BP samson 2020-07-20 14:56:24 65.0000 mm[Hg] Bdy height 2020-07-20 14:56:24 64.0000 [in_i] SaO2% BldA PulseOx 2020-07-20 14:56:24 98.0000 % Heart rate 2020-07-20 14:56:24 88.0000 /min Resp rate 2020-07-20 14:56:24 16.0000 /min BP sys 2020-07-20 14:56:24 122.0000 mm[Hg] Body temperature 2020-07-20 14:56:24 97.7000 [degF] Weight 2020-07-20 14:56:24 156.0000 [lb_av] BMI 2020-07-13 15:45:06 26.8500 BP samson 2020-07-13 15:45:06 89.0000 mm[Hg] Bdy height 2020-07-13 15:45:06 64.0000 [in_i] SaO2% BldA PulseOx 2020-07-13 15:45:06 99.0000 % Heart rate 2020-07-13 15:45:06 84.0000 /min Resp rate 2020-07-13 15:45:06 16.0000 /min BP sys 2020-07-13 15:45:06 124.0000 mm[Hg] Body temperature 2020-07-13 15:45:06 98.2000 [degF] Weight 2020-07-13 15:45:06 156.4000 [lb_av] BMI 2020-07-06 15:26:01 26.6700 BP samson 2020-07-06 15:26:01 88.0000 mm[Hg] Bdy height 2020-07-06 15:26:01 64.0000 [in_i] SaO2% BldA PulseOx 2020-07-06 15:26:01 99.0000 % Heart rate 2020-07-06 15:26:01 83.0000 /min Resp rate 2020-07-06 15:26:01 16.0000 /min BP sys 2020-07-06 15:26:01 122.0000 mm[Hg] Body temperature 2020-07-06 15:26:01 99.0000 [degF] Weight 2020-07-06 15:26:01 155.4000 [lb_av] BMI 2020-06-30 08:47:31 26.9800 BP samson 2020-06-30 08:47:31 76.0000 mm[Hg] Bdy height 2020-06-30 08:47:31 64.0000 [in_i] SaO2% BldA PulseOx 2020-06-30 08:47:31 98.0000 % Heart rate 2020-06-30 08:47:31 82.0000 /min Resp rate 2020-06-30 08:47:31 18.0000 /min BP sys 2020-06-30 08:47:31 118.0000 mm[Hg] Body temperature 2020-06-30 08:47:31 99.1000 [degF] Weight 2020-06-30 08:47:31 157.2000 [lb_av] BMI 2020-06-22 15:07:23 26.6700 BP samson 2020-06-22 15:07:23 80.0000 mm[Hg] Bdy height 2020-06-22 15:07:23 64.0000 [in_i] SaO2% BldA PulseOx 2020-06-22 15:07:23 99.0000 % Heart rate 2020-06-22 15:07:23 83.0000 /min Resp rate 2020-06-22 15:07:23 16.0000 /min BP sys 2020-06-22 15:07:23 116.0000 mm[Hg] Body temperature 2020-06-22 15:07:23 97.5000 [degF] Weight 2020-06-22 15:07:23 155.4000 [lb_av] BMI 2020-06-16 08:57:22 26.9800 BP samson 2020-06-16 08:57:22 73.0000 mm[Hg] Bdy height 2020-06-16 08:57:22 64.0000 [in_i] SaO2% BldA PulseOx 2020-06-16 08:57:22 99.0000 % Heart rate 2020-06-16 08:57:22 81.0000 /min Resp rate 2020-06-16 08:57:22 18.0000 /min BP sys 2020-06-16 08:57:22 116.0000 mm[Hg] Body temperature 2020-06-16 08:57:22 97.4000 [degF] Weight 2020-06-16 08:57:22 157.2000 [lb_av] BMI 2020-06-08 14:39:17 26.9500 BP samson 2020-06-08 14:39:17 74.0000 mm[Hg] Bdy height 2020-06-08 14:39:17 64.0000 [in_i] SaO2% BldA PulseOx 2020-06-08 14:39:17 99.0000 % Heart rate 2020-06-08 14:39:17 80.0000 /min Resp rate 2020-06-08 14:39:17 16.0000 /min BP sys 2020-06-08 14:39:17 127.0000 mm[Hg] Body temperature 2020-06-08 14:39:17 98.6000 [degF] Weight 2020-06-08 14:39:17 157.0000 [lb_av] BMI 2020-06-02 08:38:20 26.8800 BP samson 2020-06-02 08:38:20 71.0000 mm[Hg] Bdy height 2020-06-02 08:38:20 64.0000 [in_i] SaO2% BldA PulseOx 2020-06-02 08:38:20 100.0000 % Heart rate 2020-06-02 08:38:20 85.0000 /min Resp rate 2020-06-02 08:38:20 20.0000 /min BP sys 2020-06-02 08:38:20 122.0000 mm[Hg] Body temperature 2020-06-02 08:38:20 98.1000 [degF] Weight 2020-06-02 08:38:20 156.6000 [lb_av] BMI 2020-05-25 13:02:11 26.6700 BP samson 2020-05-25 13:02:11 80.0000 mm[Hg] Bdy height 2020-05-25 13:02:11 64.0000 [in_i] SaO2% BldA PulseOx 2020-05-25 13:02:11 98.0000 % Heart rate 2020-05-25 13:02:11 74.0000 /min Resp rate 2020-05-25 13:02:11 18.0000 /min BP sys 2020-05-25 13:02:11 118.0000 mm[Hg] Body temperature 2020-05-25 13:02:11 98.4000 [degF] Weight 2020-05-25 13:02:11 155.4000 [lb_av] BMI 2020-05-18 14:01:46 26.5400 BP samson 2020-05-18 14:01:46 75.0000 mm[Hg] Bdy height 2020-05-18 14:01:46 64.0000 [in_i] Heart rate 2020-05-18 14:01:46 81.0000 /min Resp rate 2020-05-18 14:01:46 14.0000 /min BP sys 2020-05-18 14:01:46 119.0000 mm[Hg] Body temperature 2020-05-18 14:01:46 98.3000 [degF] Weight 2020-05-18 14:01:46 154.6000 [lb_av] Bdy height 2020-04-28 14:45:40 64.0000 [in_i] Body temperature 2020-04-28 14:45:40 96.8000 [degF] BMI 2020-04-14 10:14:57 26.0600 BP samson 2020-04-14 10:14:57 81.0000 mm[Hg] Bdy height 2020-04-14 10:14:57 64.0000 [in_i] SaO2% BldA PulseOx 2020-04-14 10:14:57 99.0000 % Heart rate 2020-04-14 10:14:57 91.0000 /min Resp rate 2020-04-14 10:14:57 18.0000 /min BP sys 2020-04-14 10:14:57 126.0000 mm[Hg] Body temperature 2020-04-14 10:14:57 98.4000 [degF] Weight 2020-04-14 10:14:57 151.8000 [lb_av] Weight 2020-03-25 14:15:00 169.76 [lb_av] BMI (Body Mass Index) 2020-03-25 14:15:00 29.0 kg/m2 BMI 2020-03-18 15:20:15 26.5000 BP samson 2020-03-18 15:20:15 67.0000 mm[Hg] Bdy height 2020-03-18 15:20:15 64.0000 [in_i] SaO2% BldA PulseOx 2020-03-18 15:20:15 98.0000 % Heart rate 2020-03-18 15:20:15 89.0000 /min Resp rate 2020-03-18 15:20:15 18.0000 /min BP sys 2020-03-18 15:20:15 105.0000 mm[Hg] Body temperature 2020-03-18 15:20:15 98.9000 [degF] Weight 2020-03-18 15:20:15 154.4000 [lb_av] BMI 2020-02-24 15:10:30 26.4200 BP samson 2020-02-24 15:10:30 69.0000 mm[Hg] Bdy height 2020-02-24 15:10:30 64.0000 [in_i] SaO2% BldA PulseOx 2020-02-24 15:10:30 98.0000 % Heart rate 2020-02-24 15:10:30 91.0000 /min Resp rate 2020-02-24 15:10:30 16.0000 /min BP sys 2020-02-24 15:10:30 130.0000 mm[Hg] Body temperature 2020-02-24 15:10:30 98.2000 [degF] Weight 2020-02-24 15:10:30 153.9000 [lb_av] Hospital Discharge Instructions Additional Instructions Discharge Instructions Nursing Discharge Assessment Cognitive Status: Awake,Alert, Appropriate, Follows Commands Functional Status: Ambulates Independently, Eats Independently,Bathes Independently, Dresses Independently, Toilets Independently, Medicates Self Indepen. Is your patient leaving the hospital with any of these: None Are Patient Instructions For Above Device Added on DC Tab: No Plan of Care #1 Problem:: BREAST MASTECTOMY AND MEDIPORT PLACEMENT Plan:: REVIEW ALL EDUCATION MATERIALS PROVIDED Goal:: REMAINS FREE FROM COMPLICATIONS Level Of Pain At Discharge: 2 Pain Scale Does The Pt Understand How To Manage Their Pain At Home?: Yes Pain Management Plan of Care: TakeMedOnlyAsPrescribed, IncreaseActivityAsTolerat , NotifyMDForIncreasingPain Does Patient Have Valuables In Possession: Yes Medication or Valuables Kept With Patient: cell phone, clothing, glass, cell forest manager special mastectomy bra, 2 argenis drains ValuablesPrev Returned-Visitor: n/a Meds Returned from Pharmacy: n/a Pt Specific Meds Returned: n/a RT Pt Specific Meds Returned: n/a Valuables Returned by Security: n/a Physician Documentation Discharge Diagnoses: (1) 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 No driving while taking narcotics. Leave Steri-Strips in place. Strip, empty, and record drain output at least every 8 hours. Call [phone] for postoperative appointment if one has not already been made for you. Call the same number or go to the ER for concerning symptoms Diet: As Tolerated, Resume Previous Diet Incision/Wound Care: May Shower (48 hours after surgery), Leave Steristrips, Report Drainage, Report Redness, Report Swelling, Call for Temp > 101.1 General: No Strenous Activity, No Heavy Lifting Other: Don't drive (while taking narcotics)
== END 2020-07-21 12:30 | disposition home or self-care (01) ==
LOC: II 08:59 → 5TH 09:06 → II 12:30
PROVIDERS: ATTEND Internal Medicine
DX: Z51.11 Encounter for antineoplastic chemotherapy (principal); C50.012 Malignant neoplasm of nipple and areola, left female breast
CPT/HCPCS: 96413; 96367; 96417; J1200; J7050; J9267; S0028; J1100; J9355; J1642

== ENCOUNTER 2020-07-28 08:57 | Outpatient (CLI) | payer OTHER ==
[2020-07-28 09:57] VITALS: BP 120/74
== END 2020-07-28 13:31 | disposition home or self-care (01) ==
LOC: II 08:57 → 5TH 08:59 → II 13:31
PROVIDERS: ATTEND Internal Medicine
DX: Z51.11 Encounter for antineoplastic chemotherapy (principal); C50.012 Malignant neoplasm of nipple and areola, left female breast
CPT/HCPCS: 96367; 96413; 96417; J1100; J1200; J1642; J7050; J9267; J9355; S0028

== ENCOUNTER 2020-08-11 08:59 | Outpatient (CLI) | payer OTHER ==
[2020-08-11 09:22] VITALS: BP 111/72
== END 2020-08-11 13:20 | disposition home or self-care (01) ==
LOC: II 08:59 → 5TH 09:01 → II 13:20
PROVIDERS: ATTEND Internal Medicine
DX: Z51.11 Encounter for antineoplastic chemotherapy (principal); C50.012 Malignant neoplasm of nipple and areola, left female breast
CPT/HCPCS: 96413; 96367; 96417; J1200; J7050; J9267; S0028; J1100; J9355; J1642

== ENCOUNTER → 2020-08-16 | Outpatient (CLI) | payer OTHER ==
--- NOTE | 2020-08-16 12:30 | RADIOLOGY REPORT (SQ) ---
EXAM DESCRIPTION: NM MUGA REST IMAGES COMPLETED DATE/TIME: 08/16/2020 11:43 am REASON FOR STUDY: MALIGNANT NEOPLASM OF NIPPLE AND AREOLA, LEFT FEMALE BREAST C50.012 MALIGNANT ANDRA PLASM OF NIPPLE AND AREOLA, LEFT FEMALE COMPARISON: 05/10/2020 RADIONUCLIDE AND DOSE: 25.1 mCi technetium 99m labeled red blood cells The route of agent administration: Intravenous TECHNIQUE: Following administration of the radionuclide, gated images of the heart are obtained in t hree projections. Left ventricular functional analysis performed. LIMITATIONS: None. FINDINGS: LEFT VENTRICULAR FUNCTION: EJECTION FRACTION: 56%. END-DIASTOLIC VOLUME: 114 mL. END-SYSTOLIC VOLUME: 49 mL. WALL MOTION: No focal wall motion abnormalities. OTHER: No other significant finding. IMPRESSION: NORMAL CARDIAC MUGA STUDY. NORMAL LEFT VENTRICULAR FUNCTION WITH VALUES ABOVE. TECHNICAL DOCUMENTATION: JOB ID: [id number] [employer] All Rights Reserved Reading location - IP/workstation name: [email or web address]
== END ==
LOC: RAD 10:47
PROVIDERS: ATTEND Internal Medicine
DX: Z51.11 Encounter for antineoplastic chemotherapy (principal); C50.012 Malignant neoplasm of nipple and areola, left female breast; Z79.899 Other long term (current) drug therapy
CPT/HCPCS: 78472; A9560; Q9969

== ENCOUNTER 2020-09-08 11:05 | Outpatient (CLI) | payer OTHER ==
[~2020-09-08 11:05] MED LIST changes: -DEXAMETHASONE 10 MG in NS 50 ML IV PRN; -DIPHENHYDRAMINE 50 MG in NS 50 ML IV PRN; -FAMOTIDINE 20 MG in NS 50 ML IV PRN; -NORMAL SALINE 250 ML @ KVO IV PRN; +NORMAL SALINE 250 ML IV PRN; -PACLITAXEL SEMI SYNTHETIC IV PRN
[2020-09-08 11:28] VITALS: BP 107/62
== END 2020-09-08 13:00 | disposition home or self-care (01) ==
LOC: II 11:05 → 5TH 11:09 → II 13:00
PROVIDERS: ATTEND Internal Medicine
DX: Z51.11 Encounter for antineoplastic chemotherapy (principal); C50.012 Malignant neoplasm of nipple and areola, left female breast
CPT/HCPCS: 96413; J7050; J9355; J1642

== ENCOUNTER 2020-09-29 11:11 | Outpatient (CLI) | payer OTHER ==
[2020-09-29 11:19] VITALS: BP 109/69
== END 2020-09-29 12:40 | disposition home or self-care (01) ==
LOC: II 11:11 → 5TH 11:13 → II 12:40
PROVIDERS: ATTEND Internal Medicine
DX: Z51.11 Encounter for antineoplastic chemotherapy (principal); C50.012 Malignant neoplasm of nipple and areola, left female breast
CPT/HCPCS: 96413; J7050; J9355; J1642